=== PATIENT | male | born 1930 | race Caucasian/White ===

== ENCOUNTER 2016-09-08 15:35 | Observation (INO) | payer OTHER ==
[~2016-09-08] VITALS: Ht 165.1 cm; Wt 95.8 kg
[~2016-09-08 15:35] MED LIST: ASCO1CAP3 PO; ASPI81TA28 PO; ATEN-173 PO; DIPH-416 PO; EPLE25TA3 PO; FRS/40 PO; GLCSR/500 PO; GLIP10TA9 PO; LORA-741 PO; MULT-845 PO; PRLSR20 PO; RANI300T2 PO; ROSU5TAB PO; TAMS0.4C38 PO; VITA400C15 PO
--- NOTE | 2016-09-08 15:48 | EMERGENCY ROOM VISIT NOTE ---
History Report prepared by Jessika: Lurdes Dodd Under the Supervision of: Dr. Marva Grider M.D. First contact with patient: 15:38 Chief Complaint: CHEST PAIN Stated Complaint: CHEST PAIN History of Present Illness The patient is an 86 year old male who presents to the Emergency Room with complaints of resolved left sided chest pain beginning 90 minutes prior to arrival. He states that the pain radiates down his left arm. He does note he experienced back pain yesterday. He denies a history of a heart attack. The patient denies any shortness of breath. The patient is a diabetics and has chronic swelling to his lower extremities. The patient took 3 -81 mg aspirin and nitro prior to arrival. 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 Review of Systems See HPI for pertinent positives & negatives. A total of 10 systems reviewed and were otherwise negative. Past Medical & Surgical Medical Problems: (1) Anxiety (2) BPH (benign prostatic hyperplasia) (3) Chest pain (4) Diabetes mellitus, type II (5) Diastolic dysfunction (6) Dyslipidemia (7) GERD (gastroesophageal reflux disease) (8) HTN (hypertension) (9) Paroxysmal SVT (supraventricular tachycardia) Surgical Problems: (1) H/O umbilical hernia repair (2) History of back surgery (3) Hx of cholecystectomy Family History FH: CAD (coronary artery disease) Social History Smoking Status: Former Smoker Alcohol Use: none Drug Use: none Marital Status: Housing Status: lives with family Occupation Status: retired Current/Historical Medications Scheduled Ascorbic Acid (Vitamin C), 500 MG PO DAILY Aspirin (Aspirin EC Low Dose), 81 MG PO Q2D Atenolol (Tenormin), 25 MG PO DAILY Eplerenone (Eplerenone), 25 MG PO DAILY Furosemide (Lasix), 40 MG PO DAILY Glipizide (Glucotrol), 10 MG PO AMPM Metformin HCl (Metformin HCl ER), 500 MG PO AMPM Multiple Vitamins W/ Minerals (Centrum Silver Adult 50+), 1 TAB PO DAILY Omeprazole (Prilosec), 20 MG PO DAILY Ranitidine (Zantac), 300 MG PO HS Rosuvastatin Calcium (Crestor), 5 MG PO HS Tamsulosin Hcl (Flomax), 0.4 MG PO QPM Tocopheryl Acet,Dl-Alpha (Vitamin E), 400 INTER.UNIT PO DAILY Scheduled PRN Diphenoxylate/Atropine (Lomotil), 1 TAB PO DIRECTED PRN for Diarrhea Lorazepam (Ativan), 0.5 MG PO Q6H PRN for Anxiety Allergies Coded Allergies: Morphine (Unverified Adverse Reaction, Unknown, NAUSEA AND CONFUSION, 09/08) Physical Exam Vital Signs Date Time Temp Pulse Resp B/P Pulse Ox O2 Delivery O2 Flow Rate FiO2 09/08/16 18:00 73 22 159/66 94 09/08/16 16:04 67 09/08/16 15:53 36.5 68 21 151/66 96 Room Air 09/08/16 15:49 96 Room Air Physical Exam Vital signs reviewed. General: Well-appearing, elderly, obese, disheveled appearing. HEENT: No scleral icterus, PERRLA, neck supple. Atraumatic. Cardiovascular: Regular rate and rhythm, no extra sounds. Pulmonary: Clear to auscultation bilaterally, normal work of breathing. Abdomen: Soft, nontender, nondistended, positive bowel sounds. Musculoskeletal: Atraumatic, no peripheral edema. Neurologic: Patient awake alert and oriented x 3, full strength in all 4 extremities. Cranial nerves 2 through 12 grossly intact. Skin: Left 3-4+ pitting edema of lower extremity, right 2+ pitting edema of lower extremity. Medical Decision & Procedures ER Provider Diagnostic Interpretation: X-ray results as stated below per my interpretation and radiologist interpretation. Other radiology results as stated below per my review and radiologist interpretation: CHEST ONE VIEW PORTABLE HISTORY: Atypical chest pain COMPARISON: Chest 08/08/2016. FINDINGS: The heart remains top normal in size. A few bibasilar linear densities favor subsegmental atelectasis. Otherwise, no focal lung consolidations to suggest pneumonia. No evidence for pulmonary edema. No pleural effusions. No pneumothorax. IMPRESSION: Mild bibasilar subsegmental atelectasis. Otherwise, no acute process within the chest. Electronically signed by: Chace Storm M.D. 09/08/2016 4:20 PM Dictated Date/Time: 09/08/2016 4:18 PM ULTRASOUND VENOUS DOPPLER LWR EXT BILA CLINICAL HISTORY: Bilateral leg edema, shortness of breath, and chest pain. COMPARISON STUDY: 11/21/2014 FINDINGS: Real-time and color flow Doppler imaging were performed. Flow was seen within the femoral, popliteal and calf veins with no intraluminal thrombus demonstrated. The saphenous vein is patent. IMPRESSION: No evidence of lower extremity DVT. Electronically signed by: Oz Tierney M.D. 09/08/2016 7:14 PM Dictated Date/Time: 09/08/2016 7:13 PM Laboratory Results Test 09/08/16 17:14 Immature Granulocyte % (Auto) 0.6 % White Blood Count 9.55 K/uL (4.8-10.8) Red Blood Count 4.37 M/uL (4.7-6.1) Hemoglobin 14.8 g/dL (14.0-18.0) Hematocrit 41.4 % (42-52) Mean Corpuscular Volume 94.7 fL (80-100) Mean Corpuscular Hemoglobin 33.9 pg (25-34) Mean Corpuscular Hemoglobin Concent 35.7 g/dl (32-36) Platelet Count 222 K/uL (130-400) Mean Platelet Volume 9.5 fL (7.4-10.4) Neutrophils (%) (Auto) 70.4 % Lymphocytes (%) (Auto) 15.4 % Monocytes (%) (Auto) 12.7 % Eosinophils (%) (Auto) 0.5 % Basophils (%) (Auto) 0.4 % Neutrophils # (Auto) 6.72 K/uL (1.4-6.5) Lymphocytes # (Auto) 1.47 K/uL (1.2-3.4) Monocytes # (Auto) 1.21 K/uL (0.11-0.59) Eosinophils # (Auto) 0.05 K/uL (0-0.5) Basophils # (Auto) 0.04 K/uL (0-0.2) Immature Granulocyte # (Auto) 0.06 K/uL (0.00-0.02) Prothrombin Time 11.1 SECONDS (9.0-12.0) Prothromb Time International Ratio 1.0 (0.9-1.1) D-Dimer 400 ug/L FEU (0-500) Total Bilirubin 0.5 mg/dl (0.2-1) Direct Bilirubin 0.2 mg/dl (0-0.2) Aspartate Amino Transf (AST/SGOT) 21 U/L (15-37) Alanine Aminotransferase (ALT/SGPT) 33 U/L (12-78) Alkaline Phosphatase 81 U/L (45-117) Pro-B-Type Natriuretic Peptide 187 pg/ml (0-1800) Total Protein 6.6 gm/dl (6.4-8.2) Albumin 3.4 gm/dl (3.4-5.0) Laboratory results per my review. Medications Administered Medications (Trade) Dose Ordered Sig/Federica Route Start Time Stop Time Status Last Admin Dose Admin Magnesium Oxide (Mag-Ox Tab) 800 mg NOW STAT PO 09/08/16 17:57 09/08/16 17:59 DC 09/08/16 19:15 800 MG ECG Indication: chest pain Rate (beats per minute): 68 Rhythm: normal sinus Findings: no ectopy, other (repolarization abnormalities in anterior leads) ED Course 1541: Past medical records reviewed. The patient was evaluated in room B8. A complete history and physical examination was performed. 175: Mag-Ox Tab 800 mg PO. 1826: Troponin is negative. 1845: I reviewed the patient's case with Dr. Malik Lee. Dr. Gan will evaluate the patient for further management. Medical Decision The patient is a 86 year old male who presents to the ED with complaints of chest pain. Differentials include: Acute coronary syndrome, pulmonary embolus , aortic dissection, musculoskeletal pain, pneumonia, pleural effusion, pneumothorax This patient was evaluated and appeared to be in no significant distress. IV access was obtained and laboratory work was drawn. The patient was placed on the monitor worker and found to be in a normal sinus rhythm. Patient was given magnesium oxide 800 mg by mouth for a slightly depleted magnesium level. Chest x-ray reveals no evidence of acute process, bilateral lower extremity ultrasounds are negative for DVT. Patient's cardiac enzymes are negative. Given the patient's multiple risk factors and remote stress test with new onset weakness, he'll be evaluated by the hospitalist service for further management. He is aware of the plan and agrees. Consults Time Called: 1839 Consulting Physician: Dr. Malik Lee Returned Call: 1845 I reviewed the patient's case with Dr. Malik Lee. Dr. Gan will evaluate the patient for further management. Impression Primary Impression: Chest pain radiating to arm Scribe Attestation The scribe's documentation has been prepared under my direction and personally reviewed by me in its entirety. I confirm that the note above accurately reflects all work, treatment, procedures, and medical decision making performed by me. Departure Information Dispostion Being Evaluated By Hospitalist Referrals Shy Montes.Mathew PA-C (PCP)
--- NOTE | 2016-09-08 16:21 | DIAGNOSTIC IMAGING REPORT ---
CHEST ONE VIEW PORTABLE HISTORY: Atypical chest pain COMPARISON: Chest 08/08/2016. FINDINGS: The heart remains top normal in size. A few bibasilar linear densities favor subsegmental atelectasis. Otherwise, no focal lung consolidations to suggest pneumonia. No evidence for pulmonary edema. No pleural effusions. No pneumothorax. IMPRESSION: Mild bibasilar subsegmental atelectasis. Otherwise, no acute process within the chest. Electronically signed by: Chace Storm M.D. 09/08/2016 4:20 PM Dictated Date/Time: 09/08/2016 4:18 PM
[2016-09-08 17:23] LABS: BASO % 0.4 %; BASO ABS # 0.04 K/uL (0-0.2); COMPLETE YES; EOS % 0.5 %; HEMATOCRIT 41.4 % (42-52); IG% 0.6 %; LYMPH % 15.4 %; LYMPH ABS # 1.47 K/uL (1.2-3.4); MEAN CELL VOLUME 94.7 fL (80-100); MEAN CORPUSCULAR HEMOGLOBIN 33.9 pg (25-34); MEAN CORPUSCULAR HGB CONC 35.7 g/dl (32-36); MEAN PLATELET VOLUME 9.5 fL (7.4-10.4); MONO % 12.7 %; NEUT % 70.4 %; PLATELET COUNT 222 K/uL (130-400); RED BLOOD COUNT 4.37 M/uL (4.7-6.1); WHITE BLOOD COUNT 9.55 K/uL (4.8-10.8)
[2016-09-08 17:49] LABS: ALT/SGPT 33 U/L (12-78); AST/SGOT 21 U/L (15-37); BLOOD UREA NITROGEN 13 mg/dl (7-18); BUN/CREATININE RATIO 10.1 (10-20); CALCIUM 8.3 mg/dl (8.5-10.1); CARBON DIOXIDE 28 mmol/L (21-32); CHLORIDE 100 mmol/L (98-107); GLUCOSE 129 mg/dl (70-99); MAGNESIUM 1.7 mg/dl (1.8-2.4); POTASSIUM 3.7 mmol/L (3.5-5.1); SODIUM 139 mmol/L (136-145)
[2016-09-08 17:54] LABS: ALKALINE PHOSPHATASE 81 U/L (45-117); CKMB/CK RATIO 2.7 (0-3.0)
[2016-09-08] MEDS ORDERED: MAGNESIUM OXIDE 400 MG TAB PO STA (17:57)
[2016-09-08] MEDS ORDERED: NITROGLYCERIN 0.4 MG SL PER TAB CHARGE SL PRN (19:00)
[2016-09-08] MEDS ORDERED: POLYETHYLENE (MIRALAX) 17 GM PACK PO PRN (19:00)
[2016-09-08] MEDS ORDERED: ONDANSETRON INJ 2 MG/ML 2 ML VIAL IV PRN (19:00)
[2016-09-08] MEDS ORDERED: ALUMINUM/MAGNESIUM/SIMETH (MAALOX MAX) 30 ML UDC PO PRN (19:00)
[2016-09-08] MEDS ORDERED: ACETAMINOPHEN 325 MG TAB PO PRN (19:00)
[2016-09-08] MEDS ORDERED: ZOLPIDEM TARTRATE 5 MG TAB PO PRN (19:00)
[2016-09-08] MEDS ORDERED: MAGNESIUM HYDROXIDE SUSP 30 ML UDC PO PRN (19:00)
[2016-09-08] MEDS ORDERED: GLUCOSE 10 TABS/TUBE PO PRN (19:15)
[2016-09-08] MEDS ORDERED: DEXTROSE 50% 50 ML SYR IV PRN (19:15)
[2016-09-08] MEDS ORDERED: GLUCAGON FOR INJ 1 MG VIAL SQ PRN (19:15)
[2016-09-08] MEDS ORDERED: GLUCOSE 40% GEL 15 GM TUBE PO PRN (19:15)
--- NOTE | 2016-09-08 19:15 | DIAGNOSTIC IMAGING REPORT ---
ULTRASOUND VENOUS DOPPLER LWR EXT BILA CLINICAL HISTORY: Bilateral leg edema, shortness of breath, and chest pain. COMPARISON STUDY: 11/21/2014 FINDINGS: Real-time and color flow Doppler imaging were performed. Flow was seen within the femoral, popliteal and calf veins with no intraluminal thrombus demonstrated. The saphenous vein is patent. IMPRESSION: No evidence of lower extremity DVT. Electronically signed by: Oz Tierney M.D. 09/08/2016 7:14 PM Dictated Date/Time: 09/08/2016 7:13 PM
[2016-09-08] MEDS ORDERED: ASPEC81 PO (19:23)
[2016-09-08] MEDS ORDERED: LORAZEPAM 0.5 MG TAB PO PRN (19:30)
[2016-09-08] MEDS ORDERED: DIPHENOXYLATE/ATROPINE 2.5/0.025MG TAB PO PRN (19:30)
[2016-09-08 19:39] LABS: PROTHROMBIN TIME (PATIENT) 11.1 SECONDS (9.0-12.0)
--- NOTE | 2016-09-08 19:45 | History and Physical ---
History & Physical Date & Time of Service: Sep 08, 2016 at 19:23 Chief Complaint: Chest Pain Primary Care Physician: Shy Montes.Mathew PA-C History of Present Illness Source: patient This is an 86 y/o male with PMHx of DM 2, GERD, Diastolic dysfunction on Lasix, HTN, Dyslipidemia and other problems as outlined below who presents to the ED c/ o L sided chest pain that began this afternoon. Pt reports that he was sitting on his couch around 1400 when he developed acute onset L sided chest pain that he describes as sharp 9/10 pain that radiated down his L arm. Sxs were unchanged with exertion. Pt received 1 nitro and 3 baby ASA en route to the ED which relieved his chest pain completely. Pt has never has similar sxs before. FmHx includes mother with CAD. Pt has chronic LE edema which is unchanged from his baseline. Pt currently currently lives at home with his daughter and son-in- law. He is typically fairly active ( mowing lawn, walking, etc) with no problems. Pt denies fever/chills, diaphoresis, SOB, abd pain, N/V, bowel or bladder issues,calf pain, lightheadedness/dizziness. In the ED, vitals are stable. Trop negative. EKG no ischemic change. Pt is currently chest pain free. He will be admitted for further evaluation and treatment. Past Medical/Surgical History Medical Problems: (1) Anxiety Status: Chronic (2) BPH (benign prostatic hyperplasia) Status: Chronic (3) Diabetes mellitus, type II Status: Chronic (4) Diastolic dysfunction Status: Chronic (5) Dyslipidemia Status: Chronic (6) GERD (gastroesophageal reflux disease) Status: Chronic (7) HTN (hypertension) Status: Chronic (8) Paroxysmal SVT (supraventricular tachycardia) Status: Chronic Surgical Problems: (1) H/O umbilical hernia repair Status: Resolved (2) History of back surgery Permanent Comment: Lumbar Spine x 2. Status: Resolved (3) Hx of cholecystectomy Status: Resolved Family History FH: CAD (coronary artery disease) Social History Smoking Status: Former Smoker (4 ppd x 25 years; quit 25 years ago ) Alcohol Use: none Drug Use: none Marital Status: Housing status: lives with family (daughter and son-in-law) Occupational Status: retired Immunizations History of Influenza Vaccine: No History of Tetanus Vaccine?: Yes History of Pneumococcal: Yes Pneumococcal Date: May 10, 2009 History of Hepatitis B Vaccine: No Multi-Drug Resistant Organisms History of MDRO: No Allergies Coded Allergies: Morphine (Unverified Adverse Reaction, Unknown, NAUSEA AND CONFUSION, 09/08) Home Medications Scheduled Ascorbic Acid (Vitamin C), 500 MG PO DAILY Aspirin (Aspirin EC Low Dose), 81 MG PO Q2D Atenolol (Tenormin), 25 MG PO DAILY Eplerenone (Eplerenone), 25 MG PO DAILY Furosemide (Lasix), 40 MG PO DAILY Glipizide (Glucotrol), 10 MG PO AMPM Isosorbide Mononitrate (Isosorbide Mononitrate ER), 30 MG PO QAM Metformin HCl (Metformin HCl ER), 500 MG PO AMPM Multiple Vitamins W/ Minerals (Centrum Silver Adult 50+), 1 TAB PO DAILY Omeprazole (Prilosec), 20 MG PO DAILY Ranitidine (Zantac), 300 MG PO HS Rosuvastatin Calcium (Crestor), 5 MG PO HS Tamsulosin Hcl (Flomax), 0.4 MG PO QPM Tocopheryl Acet,Dl-Alpha (Vitamin E), 400 INTER.UNIT PO DAILY Scheduled PRN Diphenoxylate/Atropine (Lomotil), 1 TAB PO DIRECTED PRN for Diarrhea Lorazepam (Ativan), 0.5 MG PO Q6H PRN for Anxiety Review of Systems Constitutional: No chills, No fatigue, No fever, No sweats, No weakness Eyes: No worsening of vision ENT: No hearing loss Respiratory: No cough, No shortness of breath Cardiovascular: + chest pain, No claudication, No edema, No palpitations Abdomen: No constipation, No diarrhea, No nausea, No pain, No vomiting Musculoskeletal: + swelling (chronic), No calf pain Genitourinary - Male: No dysuria Neurologic: No weakness Psychiatric: No depression symptoms Endocrine: No fatigue Hematologic / Lymphatic: No abnormal bleeding/bruising Integumentary: No new/changing skin lesions Physical Exam Vital Signs Date Time Temp Pulse Resp B/P Pulse Ox O2 Delivery O2 Flow Rate FiO2 09/08/16 18:00 73 22 159/66 94 09/08/16 16:04 67 09/08/16 15:53 36.5 68 21 151/66 96 Room Air 09/08/16 15:49 96 Room Air General Appearance: WD/WN, no apparent distress, + pertinent finding (Pt is sitting up comfortably in bed ) Head: normocephalic, atraumatic Eyes: normal inspection ENT: hearing grossly normal Neck: supple Respiratory/Chest: chest non-tender, lungs clear, normal breath sounds, no respiratory distress Cardiovascular: regular rate, rhythm, no murmur Abdomen/GI: normal bowel sounds, non tender, soft Back: normal inspection Extremities/Musculoskelatal: no calf tenderness, + pedal edema (4+ pitting edema bilat; L>R), + swelling, + pertinent finding Neurologic/Psych: alert, normal mood/affect, oriented x 3 Skin: normal color, warm/dry Diagnostics Laboratory Results Results Past 24 Hours Test 09/08/16 17:14 09/08/16 18:57 09/08/16 19:00 Range/Units White Blood Count 9.55 4.8-10.8 K/uL Red Blood Count 4.37 4.7-6.1 M/uL Hemoglobin 14.8 14.0-18.0 g/dL Hematocrit 41.4 42-52 % Mean Corpuscular Volume 94.7 80-100 fL Mean Corpuscular Hemoglobin 33.9 25-34 pg Mean Corpuscular Hemoglobin Concent 35.7 32-36 g/dl Platelet Count 222 130-400 K/uL Mean Platelet Volume 9.5 7.4-10.4 fL Neutrophils (%) (Auto) 70.4 % Lymphocytes (%) (Auto) 15.4 % Monocytes (%) (Auto) 12.7 % Eosinophils (%) (Auto) 0.5 % Basophils (%) (Auto) 0.4 % Neutrophils # (Auto) 6.72 1.4-6.5 K/uL Lymphocytes # (Auto) 1.47 1.2-3.4 K/uL Monocytes # (Auto) 1.21 0.11-0.59 K/uL Eosinophils # (Auto) 0.05 0-0.5 K/uL Basophils # (Auto) 0.04 0-0.2 K/uL RDW Standard Deviation 43.7 36.4-46.3 fL RDW Coefficient of Variation 12.7 11.5-14.5 % Immature Granulocyte % (Auto) 0.6 % Immature Granulocyte # (Auto) 0.06 0.00-0.02 K/uL Sodium Level 139 136-145 mmol/L Potassium Level 3.7 3.5-5.1 mmol/L Chloride Level 100 98-107 mmol/L Carbon Dioxide Level 28 21-32 mmol/L Anion Gap 11.0 3-11 mmol/L Blood Urea Nitrogen 13 7-18 mg/dl Creatinine 1.30 0.60-1.40 mg/dl Est Creatinine Clear Calc Drug Dose 43.0 ml/min Estimated GFR () 56.5 Estimated GFR (Non- 48.7 BUN/Creatinine Ratio 10.1 10-20 Random Glucose 129 70-99 mg/dl Calcium Level 8.3 8.5-10.1 mg/dl Magnesium Level 1.7 1.8-2.4 mg/dl Total Bilirubin 0.5 0.2-1 mg/dl Direct Bilirubin 0.2 0-0.2 mg/dl Aspartate Amino Transf (AST/SGOT) 21 15-37 U/L Alanine Aminotransferase (ALT/SGPT) 33 12-78 U/L Alkaline Phosphatase 81 45-117 U/L Total Creatine Kinase 48 39-308 U/L Creatine Kinase MB 1.3 0.5-3.6 ng/ml Creatine Kinase MB Ratio 2.7 0-3.0 Troponin I < 0.015 0-0.045 ng/ml Pro-B-Type Natriuretic Peptide 187 0-1800 pg/ml Total Protein 6.6 6.4-8.2 gm/dl Albumin 3.4 3.4-5.0 gm/dl Diagnostic Radiology CXR IMPRESSION: Mild bibasilar subsegmental atelectasis. Otherwise, no acute process within the chest. BILAT LE US IMPRESSION: No evidence of lower extremity DVT. EKG EKG: NSR at 68 bpm with RBBB; no change when compared to EKG from 07/29/16 Impression Assessment and Plan ATYPICAL CHEST PAIN R/O ACS pt presents with L sided chest pain radiating down L arm relieved with nitro -observation status to telemetry -RFs include +FmHx, DM 2, HTN, Dyslipidemia, age and sex -EKG negative for ischemic change;repeat EKG PRN chest pain and in AM -Initial troponin is negative; continue to monitor with serial cardiac enzymes q6h -d-dimer negative -obtain echo to r/o cardiac wall motion abnormalities -cont ASA, BB and statin -consult cardiology, Dr. Shetty-pending input -pt is currently chest pain free -continue to monitor CHRONIC BILAT LE SWELLING; L>R -per pt, swelling is unchanged from baseline -bilat LE US negative for DVT -cont Lasix and eplerenone -monitor DIASTOLIC CHF -significant LE edema; CXR clear -echo 11/2014 EF 70% with grade 1 diastolic dysfunction and mild aortic regurg -cont Lasix, eplerenone and BB -monitor with I&Os and daily weights DM 2 -last A1C from 2014 was 8.3; repeat in AM -hold metformin and glipizide -start ISS -monitor BSG AC HS BPH -cont Flomax GERD -cont Prilosec and Zantac HTN -cont atenolol DYSLIPIDEMIA -cont statin DVT PROPHYLAXIS -subq heparin CODE STATUS -FULL CODE per discussion with patient upon admission DISPO Observation status until further workup is complete. Pt seen in collaboration with Dr. Gan. Please see her addendum for further details. Thanks! ATTENDING ADDENDUM : pt seen and examined , in agreement with above H&P 86 yo Male presented with acute onset of left sided sharp chest pain with radiation to left arm no SOB symptom completely resolved NO ischemic change in EKG initial cardiac marker negative P/E: gen : no sign of distress HEENT: sclera nonicteric , PERRLA/EOMI HT; regular S1/S2 lungs: CTA abdomen; soft,non tender Ext ; no rash , deformity neuro: no foal deficit A/P : Chest pain ; Atypical for ACS observe in Tele symptom has resolved follow serial cardiac makers Cardiology eval requested full code VTE Prophylaxis VTE Risk Assessment Done? Y/N: Yes Risk Level: Moderate
[2016-09-08 20:19] VITALS: BP_SYST 166; BP_SYST 190; BP_DIAS 65; BP_DIAS 72; PULSE 78; TEMP 36.6; O2SAT 95; Ht 165.1 cm; Wt 95.8 kg
[2016-09-08] MEDS ORDERED: ROSUVASTATIN CALCIUM 10 MG TAB PO SCH (21:00)
[2016-09-08] MEDS ORDERED: RANITIDINE HCL 150 MG TAB PO SCH (21:00)
[2016-09-08] MEDS ORDERED: TAMSULOSIN HCL 0.4 MG CAP PO SCH (21:00)
[2016-09-08] MEDS ORDERED: PHARMACY GLYCEMIC MGMT CONSULT PRN (21:19)
[2016-09-08] MEDS: INSULIN ASPART 100 UNITS/ML 3 ML PEN SC SCH (22:00)
[2016-09-08] MEDS: HEPARIN SOD 5000 UNIT/0.5 ML CARP SQ SCH (22:45)
[2016-09-09 00:03] VITALS: BP 155/76; PULSE 75; TEMP 36.8; O2SAT 94
[2016-09-09 01:27] LABS: CKMB/CK RATIO 2.6 (0-3.0)
[2016-09-09 02:45] VITALS: BP 138/72; PULSE 62; TEMP 36.4; O2SAT 97
[2016-09-09] MEDS: HEPARIN SOD 5000 UNIT/0.5 ML CARP SQ SCH ×2 (06:03→14:41)
[2016-09-09 06:20] LABS: HEMATOCRIT 40.5 % (42-52); MEAN CELL VOLUME 95.7 fL (80-100); MEAN CORPUSCULAR HEMOGLOBIN 33.1 pg (25-34); MEAN CORPUSCULAR HGB CONC 34.6 g/dl (32-36); MEAN PLATELET VOLUME 9.4 fL (7.4-10.4); PLATELET COUNT 193 K/uL (130-400); RED BLOOD COUNT 4.23 M/uL (4.7-6.1); WHITE BLOOD COUNT 7.95 K/uL (4.8-10.8)
[2016-09-09 06:54] LABS: BUN/CREATININE RATIO 11.9 (10-20); CALCIUM 8.6 mg/dl (8.5-10.1); CHOLESTEROL/HDL RATIO 4.1; CREATININE 1.2 mg/dl (0.60-1.40); POTASSIUM 4.3 mmol/L (3.5-5.1)
[2016-09-09] MEDS: INSULIN ASPART 100 UNITS/ML 3 ML PEN SC SCH ×2 (07:00→14:47)
[2016-09-09 07:15] LABS: ESTIMATED AVERAGE GLUCOSE 143 mg/dl; HA1C FLAG Normal (Normal)
[2016-09-09 08:00] VITALS: BP 183/92; PULSE 66; TEMP 36.6; O2SAT 95
[2016-09-09] MEDS ORDERED: FUROSEMIDE 40 MG TAB PO SCH (09:00)
[2016-09-09] MEDS ORDERED: CEROVITE ADV FORMULA TAB PO SCH (09:00)
[2016-09-09] MEDS ORDERED: PANTOprazole SOD 40 MG TAB PO SCH (09:00)
[2016-09-09] MEDS ORDERED: ASPIRIN 81 MG ECTAB PO SCH ×2 (09:00)
[2016-09-09] MEDS ORDERED: TOCOPHERYL, DL-ALPHA 400 INTER.UNIT CAP PO SCH (09:00)
[2016-09-09] MEDS ORDERED: ASCORBIC ACID 500 MG TAB PO SCH (09:00)
--- NOTE | 2016-09-09 09:07 | Pharmacy Progress Note ---
Glycemic Control Intl Consult Date of Service Sep 09, 2016. Scope Glycemic Pharmacist consulted by Dr Gan on 09/08/16 for glycemic control and to write orders per [facility] inpatient glycemic control protocol Objective Weight (Kilograms): 95.800 Accuchecks BSG (last 24hrs): Test 09/08/16 17:14 09/08/16 20:28 09/08/16 22:34 09/09/16 06:02 Random Glucose 129 mg/dl (70-99) 134 mg/dl (70-99) Bedside Glucose 122 mg/dl (70-99) 130 mg/dl (70-99) Test 09/09/16 06:51 Bedside Glucose 131 mg/dl (70-99) Laboratory Data (last 24hrs) Test 09/08/16 17:14 09/09/16 06:02 Anion Gap 11.0 mmol/L 8.0 mmol/L BUN/Creatinine Ratio 10.1 11.9 Blood Urea Nitrogen 13 mg/dl 14 mg/dl Creatinine 1.30 mg/dl 1.20 mg/dl Potassium Level 3.7 mmol/L 4.3 mmol/L Sodium Level 139 mmol/L 140 mmol/L White Blood Count 9.55 K/uL 7.95 K/uL Red Blood Count 4.37 M/uL Hemoglobin 14.8 g/dL Hematocrit 41.4 % Mean Corpuscular Volume 94.7 fL Mean Corpuscular Hemoglobin 33.9 pg Mean Corpuscular Hemoglobin Concent 35.7 g/dl Platelet Count 222 K/uL Mean Platelet Volume 9.5 fL Neutrophils (%) (Auto) 70.4 % Lymphocytes (%) (Auto) 15.4 % Monocytes (%) (Auto) 12.7 % Eosinophils (%) (Auto) 0.5 % Basophils (%) (Auto) 0.4 % Neutrophils # (Auto) 6.72 K/uL Lymphocytes # (Auto) 1.47 K/uL Monocytes # (Auto) 1.21 K/uL Eosinophils # (Auto) 0.05 K/uL Basophils # (Auto) 0.04 K/uL Hemoglobin A1c 6.6 % HbA1c Test 09/09/16 06:02 Hemoglobin A1c 6.6 % (4.5-5.6) H Recent Pertinent Medications Outpatient Anti-diabetic Regimen: * Glipizide 10 mg PO BIDM * Metformin 500 mg PO BIDM The patient is currently receiving: * Correctional Insulin: Novolog Correction per scale ACHS Goal Range: Low 140 mg/dL - High 180 mg/dL Correction Factor: 30 mg/dL/unit * Prandial insulin: Per carb ratio of 1 unit per 10 grams CHO consumed Risk Factors for Insulin Resistance: * Diet Assessment & Plan ASSESSMENT: * 86 yo T2D M admitted with chest pain, initiated on Novolog sliding scale overnight for the management of BSGs * A1c from this admission 6.6%- indicative of good glycemic control * Plan will be to hold outpatient oral hypoglycemics- patient did not eat breakfast well and with poor oral intake these drugs are not appropriate * Continue weight-based Novolog and reassess how patient does when eating ( patient may not need carb coverage) * ADA & AACE recommend a goal blood sugar range 140-180 mg/dl for the majority of critically ill & non-critically ill patients. However, more stringent targets may be selected in individual cases. PLAN FOR INPATIENT GLYCEMIC CONTROL: * Holding outpatient oral diabetes medications * Correctional Insulin with NOVOLOG per scale ACHS or Q6hrs while NPO * Goal Range: Low 140 mg/dL - High 180 mg/dL * Correction Factor: 30 mg/dL/unit * Nutritional / Prandial insulin per carb ratio of 1 unit per 15 grams CHO consumed * A1c current- added to D/C instructions * Please note that the plan above was derived based on current level of insulin resistance and hospital stress. These recommendations are appropriate for inpatient admission only. Plan of care upon discharge will need to be reassessed to avoid potential outpatient hypo/hyperglycemia. Thank you.
--- NOTE | 2016-09-09 09:35 | Progress Note ---
Internal Med Progress Note Date of Service: Sep 09, 2016. Provider Documentation: SUBJECTIVE: Patient is seen and examined at bedside. Currently denies any chest pain, SOB, dizziness, cough. Feels well. OBJECTIVE: Vital Signs-as noted below Physical Exam: General Appearance:Moderately built and nourished, no apparent distress, obese Head: normocephalic, Atraumatic Eyes: normal inspection, EOMI, PERRLA, Anicteric Neck: supple, no JVD, Trachea midline Respiratory/Chest: Normal breath sounds, CTA, No accessory muscle use Cardiovascular: S1, S2, No murmur Abdomen/GI:Soft, Non tender, Bowel sounds present, protuberant Extremities/Musculoskelatal:Edema 2+ Neurologic/Psych:AAOX3, grossly no focal neurological deficits Skin: normal color, warm Lab data as noted below. ASSESSMENT & PLAN: ATYPICAL CHEST PAIN R/O ACS Presented with Left sided chest pain radiating down Left arm which relieved with nitro, aspirin Risk Factors: positive family history, DM II, HTN, Dyslipidemia EKG: negative for ischemic changes Initial troponin: negative Repeat cardiac enzymes pending. D-dimer: negative, CXR: Negative ECHO: pending Continue ASA, BB, statin Cardiology consulted- await for input Chronic Bilateral LE swelling: Swelling unchanged from baseline per patient B/L LE duplex negative for DVT Continue Lasix and eplerenone DIASTOLIC CHF Significant LE edema; CXR clear Currently no signs of decompensation Last Echo 11/2014 EF 70% with grade 1 diastolic dysfunction Continue Lasix, eplerenone and BB Monitor I&O, daily weights DM II A1C:6.6 hold metformin and glipizide Continue ISS BPH continue flomax GERD continue Prilosec and Zantac HTN Continue atenolol, diuretics Will adjust meds if elevated persistently Currently asymptomatic DYSLIPIDEMIA continue statin DVT PROPHYLAXIS Heparin SQ CODE STATUS Full code DISPO Observation status: Await for cardiology input, ECHO, cardiac enzymes Vital Signs: Date Time Temp Pulse Resp B/P Pulse Ox O2 Delivery O2 Flow Rate FiO2 09/09/16 08:00 36.6 66 18 183/92 95 09/09/16 08:00 Room Air 09/09/16 04:00 Room Air 09/09/16 02:45 36.4 62 19 138/72 97 Room Air 09/09/16 00:03 36.8 75 18 155/76 94 Room Air 09/08/16 23:59 Room Air 09/08/16 20:19 36.6 78 20 190/65 95 Room Air 166/72 09/08/16 20:01 74 158/64 94 Room Air 09/08/16 18:00 73 22 159/66 94 09/08/16 16:04 67 09/08/16 15:53 36.5 68 21 151/66 96 Room Air 09/08/16 15:49 96 Room Air Lab Results: Results Past 24 Hours Test 09/08/16 17:14 09/08/16 20:28 09/08/16 22:34 09/09/16 00:57 Range/Units White Blood Count 9.55 4.8-10.8 K/uL Red Blood Count 4.37 4.7-6.1 M/uL Hemoglobin 14.8 14.0-18.0 g/dL Hematocrit 41.4 42-52 % Mean Corpuscular Volume 94.7 80-100 fL Mean Corpuscular Hemoglobin 33.9 25-34 pg Mean Corpuscular Hemoglobin Concent 35.7 32-36 g/dl Platelet Count 222 130-400 K/uL Mean Platelet Volume 9.5 7.4-10.4 fL Neutrophils (%) (Auto) 70.4 % Lymphocytes (%) (Auto) 15.4 % Monocytes (%) (Auto) 12.7 % Eosinophils (%) (Auto) 0.5 % Basophils (%) (Auto) 0.4 % Neutrophils # (Auto) 6.72 1.4-6.5 K/uL Lymphocytes # (Auto) 1.47 1.2-3.4 K/uL Monocytes # (Auto) 1.21 0.11-0.59 K/uL Eosinophils # (Auto) 0.05 0-0.5 K/uL Basophils # (Auto) 0.04 0-0.2 K/uL RDW Standard Deviation 43.7 36.4-46.3 fL RDW Coefficient of Variation 12.7 11.5-14.5 % Immature Granulocyte % (Auto) 0.6 % Immature Granulocyte # (Auto) 0.06 0.00-0.02 K/uL Prothrombin Time 11.1 9.0-12.0 SECONDS Prothromb Time International Ratio 1.0 0.9-1.1 D-Dimer 400 0-500 ug/L FEU Sodium Level 139 136-145 mmol/L Potassium Level 3.7 3.5-5.1 mmol/L Chloride Level 100 98-107 mmol/L Carbon Dioxide Level 28 21-32 mmol/L Anion Gap 11.0 3-11 mmol/L Blood Urea Nitrogen 13 7-18 mg/dl Creatinine 1.30 0.60-1.40 mg/dl Est Creatinine Clear Calc Drug Dose 43.0 ml/min Estimated GFR () 56.5 Estimated GFR (Non- 48.7 BUN/Creatinine Ratio 10.1 10-20 Random Glucose 129 70-99 mg/dl Calcium Level 8.3 8.5-10.1 mg/dl Magnesium Level 1.7 1.8-2.4 mg/dl Total Bilirubin 0.5 0.2-1 mg/dl Direct Bilirubin 0.2 0-0.2 mg/dl Aspartate Amino Transf (AST/SGOT) 21 15-37 U/L Alanine Aminotransferase (ALT/SGPT) 33 12-78 U/L Alkaline Phosphatase 81 45-117 U/L Total Creatine Kinase 48 43 39-308 U/L Creatine Kinase MB 1.3 1.1 0.5-3.6 ng/ml Creatine Kinase MB Ratio 2.7 2.6 0-3.0 Troponin I < 0.015 < 0.015 0-0.045 ng/ml Pro-B-Type Natriuretic Peptide 187 0-1800 pg/ml Total Protein 6.6 6.4-8.2 gm/dl Albumin 3.4 3.4-5.0 gm/dl Bedside Glucose 122 130 70-99 mg/dl Test 09/09/16 06:02 09/09/16 06:51 09/09/16 09:00 Range/Units White Blood Count 7.95 4.8-10.8 K/uL Red Blood Count 4.23 4.7-6.1 M/uL Hemoglobin 14.0 14.0-18.0 g/dL Hematocrit 40.5 42-52 % Mean Corpuscular Volume 95.7 80-100 fL Mean Corpuscular Hemoglobin 33.1 25-34 pg Mean Corpuscular Hemoglobin Concent 34.6 32-36 g/dl RDW Standard Deviation 44.1 36.4-46.3 fL RDW Coefficient of Variation 12.7 11.5-14.5 % Platelet Count 193 130-400 K/uL Mean Platelet Volume 9.4 7.4-10.4 fL Sodium Level 140 136-145 mmol/L Potassium Level 4.3 3.5-5.1 mmol/L Chloride Level 101 98-107 mmol/L Carbon Dioxide Level 31 21-32 mmol/L Anion Gap 8.0 3-11 mmol/L Blood Urea Nitrogen 14 7-18 mg/dl Creatinine 1.20 0.60-1.40 mg/dl Est Creatinine Clear Calc Drug Dose 45.3 ml/min Estimated GFR () 62.2 Estimated GFR (Non- 53.7 BUN/Creatinine Ratio 11.9 10-20 Random Glucose 134 70-99 mg/dl Estimated Average Glucose 143 mg/dl Hemoglobin A1c 6.6 4.5-5.6 % Calcium Level 8.6 8.5-10.1 mg/dl Magnesium Level 2.0 1.8-2.4 mg/dl Triglycerides Level 248 0-150 mg/dl Cholesterol Level 110 0-200 mg/dl HDL Cholesterol 27 mg/dl LDL Cholesterol, Calculated 33 mg/dl VLDL Cholesterol, Calculated 50 mg/dl Cholesterol/HDL Ratio 4.1 Bedside Glucose 131 70-99 mg/dl Total Creatine Kinase 52 39-308 U/L Creatine Kinase MB 1.1 0.5-3.6 ng/ml Creatine Kinase MB Ratio 2.1 0-3.0 Troponin I < 0.015 0-0.045 ng/ml
[2016-09-09 10:00] LABS: CKMB/CK RATIO 2.1 (0-3.0)
--- NOTE | 2016-09-09 11:05 | Cardiology Consultation ---
Cardiology Consultation Cardiology Consultation: Date: 09/09/16 HPI: Patient is an 86 year old male who follows with Sakshi Baez PA-C for cardiac care, and carries a past medical history for non cardiac chest pain, normal remote cath in approx 1999, negative DSE in 2012, normal LVEF per echo in 2014, history of hypertension, chronic LE edema, diastolic HF, remote history of PSVT, COPD, GERD. He states he has been feeling well and in usual state of health, until yesterday afternoon he was watching TV and experienced sudden onset left sided sharp chest pain that radiated to left shoulder. Symptoms were continuously for 20 minutes and EMS was summoned. En route to ER he was treated with SL nitro and ASA and symptoms resolved by the time he got to ER. He denies associated shortness of breath, diaphoresis, palpitations, nausea, or dizziness. He denies recent episodes of chest pain with exertional activities. He is independent with ADLs and remains active daily without symptoms. He notes chronic LE edema, unchanged without worsening SOB, orthopnea, PND or significant weight gain. He takes furosemide/Inspra daily. EKG demonstrated NSR with RBBB, chronic and unchanged without ischemic changes. Cardiac enzymes unremarkalb.e At time of consult, patient feeling well. no recurrent symptoms since admission. He is requesting discharge today if possible. BP remains borderline elevated. No chest pain, SOB, orthopnea, PND. Chronic LE edema noted. No Review of Systems: See HPI for pertinent positives. All other 10 point review of systems is negative. Problem List: 1.Noncardiac chest pain with remote catheterization without obstructive disease 2.Diastolic heart failure 3.Chronic edema 4.Hypertension 5.Hyperlipidemia 6.Remote history of PSVT 7.Chronic obstructive lung disease. 8.BPH 9.Esophageal reflux 10.Chart history of gastrointestinal hemorrhage Past Surgical History Remove gallbladder Lumbar spinal surgery x2 Umbil hernia repair (reducible) age 3+yr Egd, flexible, w/biopsy - chronic inflammation/gastritis Family History: noncontributory Social History: Formed smoker, smoking up to 4 packs per day times 60 years. [employer]. Also worked at [employer]. . Lives with daughters. No alcohol. No illegal drug use. Review of patient's allergies indicates: No Known Allergies Current Outpatient Prescriptions Reported Home Medications Medications Dose Route/Sig Max Daily Dose Days Date Category Dose Instructions Aspirin EC Low Dose (Aspirin) 81 Mg Ectab 81 Mg PO Q2D 09/08/16 Reported Metformin HCl ER (Metformin HCl) 500 Mg Tabcr 500 Mg PO AMPM 04/21/16 Reported Eplerenone 25 Mg Tab 25 Mg PO DAILY 08/30/15 Reported Glucotrol (Glipizide) 10 Mg Tab 10 Mg PO AMPM 08/30/15 Reported Lomotil (Diphenoxylate HCl/Atropine) Tab 1 Tab PO DIRECTED PRN 08/30/15 Reported Ativan (Lorazepam) 0.5 Mg Tab 0.5 Mg PO Q6H PRN 08/30/15 Reported Lasix (Furosemide) 40 Mg Tab 40 Mg PO DAILY 08/30/15 Reported Centrum Silver Adult 50+ (Multiple Vitamins W/ Minerals) 1 Tab Tab 1 Tab PO DAILY 11/21/14 Reported Flomax (Tamsulosin Hcl) 0.4 Mg Cap 0.4 Mg PO QPM 11/21/14 Reported TAKE AFTER EVENING MEAL Vitamin C (Ascorbic Acid) 500 Mg Cap 500 Mg PO DAILY 08/07/13 Reported Crestor (Rosuvastatin Calcium) 5 Mg Tab 5 Mg PO HS 08/07/13 Reported Prilosec (Omeprazole) 20 Mg Capcr 20 Mg PO DAILY 11/08/10 Reported Zantac (Ranitidine HCl) 300 Mg Tab 300 Mg PO HS 12/29/09 Reported Vitamin E (el-Opitg-Iogvaezcqy Acetate) 400 Inter.unit Cap 400 Inter.unit PO DAILY 12/29/09 Reported Tenormin (Atenolol) 25 Mg Tab 25 Mg PO DAILY 01/28/09 Reported OBJECTIVE/PHYSICAL EXAMINATION: Last 8 Hrs Date Time Temp Pulse Resp B/P Pulse Ox O2 Delivery O2 Flow Rate FiO2 09/09/16 08:00 36.6 66 18 183/92 95 09/09/16 08:00 Room Air 09/09/16 04:00 Room Air 09/09/16 02:45 36.4 62 19 138/72 97 Room Air General: A&Ox3. NAD. HEENT: Normocephalic. Atraumatic. PER. Conjunctiva pink, sclera clear. No carotid bruits. No overt JVD. Heart: RRR, 70 bpm. No murmur. No rub. No gallop. PMI is nondisplaced. Lungs: Improved aeration to the bases. No dullness to percussion. Abdomen: +BS. Distended. Soft. Nontender. No masses or organomegaly. Extremities: 1-2+ right lower extremity edema. 2+ left lower extremity pitting edema. Marked lymphedematous changes on the left. No clubbing. No cyanosis. Limited neurological examination is without focal deficits. Pulses: Radial=2/4. Posterior tibial pulses were not appreciated. Data Reviewed: Labs: Last 24 Hours Test 09/08/16 17:14 09/08/16 20:28 09/08/16 22:34 09/09/16 00:57 White Blood Count 9.55 K/uL Red Blood Count 4.37 M/uL Hemoglobin 14.8 g/dL Hematocrit 41.4 % Mean Corpuscular Volume 94.7 fL Mean Corpuscular Hemoglobin 33.9 pg Mean Corpuscular Hemoglobin Concent 35.7 g/dl Platelet Count 222 K/uL Mean Platelet Volume 9.5 fL Neutrophils (%) (Auto) 70.4 % Lymphocytes (%) (Auto) 15.4 % Monocytes (%) (Auto) 12.7 % Eosinophils (%) (Auto) 0.5 % Basophils (%) (Auto) 0.4 % Neutrophils # (Auto) 6.72 K/uL Lymphocytes # (Auto) 1.47 K/uL Monocytes # (Auto) 1.21 K/uL Eosinophils # (Auto) 0.05 K/uL Basophils # (Auto) 0.04 K/uL RDW Standard Deviation 43.7 fL RDW Coefficient of Variation 12.7 % Immature Granulocyte % (Auto) 0.6 % Immature Granulocyte # (Auto) 0.06 K/uL Prothrombin Time 11.1 SECONDS Prothromb Time International Ratio 1.0 D-Dimer 400 ug/L FEU Sodium Level 139 mmol/L Potassium Level 3.7 mmol/L Chloride Level 100 mmol/L Carbon Dioxide Level 28 mmol/L Anion Gap 11.0 mmol/L Blood Urea Nitrogen 13 mg/dl Creatinine 1.30 mg/dl Est Creatinine Clear Calc Drug Dose 43.0 ml/min Estimated GFR () 56.5 Estimated GFR (Non- 48.7 BUN/Creatinine Ratio 10.1 Random Glucose 129 mg/dl Calcium Level 8.3 mg/dl Magnesium Level 1.7 mg/dl Total Bilirubin 0.5 mg/dl Direct Bilirubin 0.2 mg/dl Aspartate Amino Transf (AST/SGOT) 21 U/L Alanine Aminotransferase (ALT/SGPT) 33 U/L Alkaline Phosphatase 81 U/L Total Creatine Kinase 48 U/L 43 U/L Creatine Kinase MB 1.3 ng/ml 1.1 ng/ml Creatine Kinase MB Ratio 2.7 2.6 Troponin I < 0.015 ng/ml < 0.015 ng/ml Pro-B-Type Natriuretic Peptide 187 pg/ml Total Protein 6.6 gm/dl Albumin 3.4 gm/dl Bedside Glucose 122 mg/dl 130 mg/dl Test 09/09/16 06:02 09/09/16 06:51 White Blood Count 7.95 K/uL Red Blood Count 4.23 M/uL Hemoglobin 14.0 g/dL Hematocrit 40.5 % Mean Corpuscular Volume 95.7 fL Mean Corpuscular Hemoglobin 33.1 pg Mean Corpuscular Hemoglobin Concent 34.6 g/dl RDW Standard Deviation 44.1 fL RDW Coefficient of Variation 12.7 % Platelet Count 193 K/uL Mean Platelet Volume 9.4 fL Sodium Level 140 mmol/L Potassium Level 4.3 mmol/L Chloride Level 101 mmol/L Carbon Dioxide Level 31 mmol/L Anion Gap 8.0 mmol/L Blood Urea Nitrogen 14 mg/dl Creatinine 1.20 mg/dl Est Creatinine Clear Calc Drug Dose 45.3 ml/min Estimated GFR () 62.2 Estimated GFR (Non- 53.7 BUN/Creatinine Ratio 11.9 Random Glucose 134 mg/dl Estimated Average Glucose 143 mg/dl Hemoglobin A1c 6.6 % Calcium Level 8.6 mg/dl Magnesium Level 2.0 mg/dl Triglycerides Level 248 mg/dl Cholesterol Level 110 mg/dl HDL Cholesterol 27 mg/dl LDL Cholesterol, Calculated 33 mg/dl VLDL Cholesterol, Calculated 50 mg/dl Cholesterol/HDL Ratio 4.1 Bedside Glucose 131 mg/dl Chest Xray on admission: IMPRESSION: Mild bibasilar subsegmental atelectasis. Otherwise, no acute process within the chest. Venous duplex on admission: IMPRESSION: No evidence of lower extremity DVT EKG on admission: Normal sinus rhythm Right bundle branch block Abnormal ECG When compared with ECG of 08-AUG-2016 03:42, No significant change was found Repeat EKG on 09/09 AM: Normal sinus rhythm Right bundle branch block Abnormal ECG When compared with ECG of 08-SEP-2016 15:45, No significant change was found Prior Data reviewed: November 2014 resting echocardiography, interpreted by Dr. Fenton showed normal LV chamber size with mild concentric LVH. LV systolic function was described as hyperdynamic, EF greater than 70%. No segmental left ventricular wall motion abnormalities were observed. Grade 1 diastolic dysfunction observed. There was mild aortic valve sclerosis without significant stenosis and mild aortic regurgitation. August 08, 2013 dobutamine stress testing was negative for pharmacologically induced myocardial ischemia at greater than 90% age predicted maximum heart rate. ASSESSMENT: 1. Atypical chest pain -no acute EKG changes -negative cardiac enzymes x2 -echocardiogram pending -has long history of presumed non cardiac chest pain, normal cath in approx 1999, with repeatedly normal stress tests, last in 2012. Echo with preserved EF in 2014. 2. Hypertension - elevated on admission -Continue atenolol, furosemide. Resume Inspra on discharge (not on formulary) -Avoid CCB given chronic LE edema -Not on IVAN/ARB? May benefit. 3. Chronic LE edema, multifactorial -stable Case discussed with Dr. Shetty. If echo remains unchanged and BP improves post AM meds, likely stable for discharge later today. (Mandy Amaral, PA-C) Patient seen and examined. Agree with assessment as above Admitted with sharp left chest /shoulder pain,resolved with one NTG and aspirin. No reoccurrence today , normal LV function and cardiac enzymes, no EKG changes. Would empirically treat HTN and above symptoms add Imdur 30 mg per day and ambulate. If stable may be discharged for out patient follow up. Santos Shetty MD (Santos Shetty M.D.)
[2016-09-09 12:38] VITALS: BP 153/84; PULSE 60; TEMP 36.3; O2SAT 96
--- NOTE | 2016-09-09 14:06 | ECHOCARDIOGRAM REPORT ---
*NOTICE TO RECEIVING LIBERTARIAN AGENCY This information is strictly Confidential and protected under [place] law. [place] law prohibits you from making any further disclosure of this information unless further disclosure is expressly permitted by the written consent of the person to whom it pertains or is authorized by law. A general authorization for the release of medical or other information is not sufficient for this purpose. Hospital accepts no responsibility if the information is made available to any other person, INCLUDING THE PATIENT. Interpretation Summary * Name: KEELY TATE Study Date: 09/09/2016 11:38 AM BP: 138/72 mmHg * [facility] HR: 62 * : 1930 (M/d/yyyy) Gender: Male Height: 65 in * Age: 86 yrs Ethnicity: [place] Weight: 222 lb * Ordering Physician: Bhavani Gan * Referring Physician: Self, Referred * Performed By: Sakshi Reed RCS * * Reason For Study: Chest Pain * BSA: 2.1 m2 * -- Conclusions -- * The left ventricle is normal in size. * There is mild concentric left ventricular hypertrophy. * The basal septum is thickened and angulated consistent with sigmoid septum. * The left ventricular wall motion is normal. * Left ventricular systolic function is normal. * Ejection Fraction = 65-70%. * Aortic valve sclerosis mild, without significant aortic valvular stenosis. * Trace aortic regurgitation. * There is trace mitral regurgitation. Procedure Details * A complete two-dimensional transthoracic echocardiogram was performed (2D, M-mode, Doppler and color flow Doppler). Left Ventricle * The left ventricle is normal in size. * There is mild concentric left ventricular hypertrophy. * The basal septum is thickened and angulated consistent with sigmoid septum. * Left ventricular systolic function is normal. * Ejection Fraction = 65-70%. * The left ventricular wall motion is normal. Right Ventricle * The right ventricle is normal in size and function. Atria * The left atrial size is normal. * Right atrial size is normal. * No ASD detected; PFO is not assessed. Mitral Valve * The mitral valve anatomy is normal. * There is no mitral valve stenosis. * There is trace mitral regurgitation. Tricuspid Valve * The tricuspid valve is normal. * There is no tricuspid stenosis. * There is trace tricuspid regurgitation. Aortic Valve * The aortic valve is trileaflet. * Aortic valve sclerosis mild, without significant aortic valvular stenosis. * No hemodynamically significant valvular aortic stenosis. * Trace aortic regurgitation. Pulmonic Valve * The pulmonic valve is not well visualized. Great Vessels * The aortic root is normal size. Pericardium/Pleural * There is no pericardial effusion. Great Vessels * Normal inferior vena cava diameter and respiratory variation suggests normal central venous pressure. Left Ventricular Diastolic Function * Grade I diastolic dysfunction, (abnormal relaxation pattern). MMode 2D Measurements and Calculations IVSd 1.0 cm IVSs 1.2 cm LVIDd 4.4 cm LVIDs 2.6 cm LVPWd 1.0 cm LVPWs 1.3 cm IVS/LVPW 1.0 FS 40.9 % EDV(Teich) 87.4 ml ESV(Teich) 24.5 ml EF(Teich) 72.0 % EDV(cubed) 84.8 ml ESV(cubed) 17.5 ml EF(cubed) 79.4 % % IVS thick 19.3 % % LVPW thick 22.2 % LV mass(C)d 153.8 grams LV mass(C)dI 74.4 grams/m\S\2 LV mass(C)s 95.4 grams LV mass(C)sI 46.2 grams/m\S\2 CO(Teich) 3.7 l/min CI(Teich) 1.8 l/min/m\S\2 SV(Teich) 62.9 ml SI(Teich) 30.4 ml/m\S\2 CO(cubed) 4.0 l/min CI(cubed) 1.9 l/min/m\S\2 SV(cubed) 67.3 ml SI(cubed) 32.6 ml/m\S\2 Ao root diam 3.7 cm Ao root area 10.7 cm\S\2 ACS 1.8 cm LA dimension 3.9 cm LA/Ao 1.1 LVAd ap4 27.2 cm\S\2 LVLd ap4 7.9 cm EDV(MOD-sp4) 78.0 ml LVAs ap4 13.2 cm\S\2 LVLs ap4 6.1 cm ESV(MOD-sp4) 24.0 ml EF(MOD-sp4) 69.2 % LVAd ap2 26.6 cm\S\2 LVLd ap2 7.9 cm EDV(MOD-sp2) 74.0 ml LVAs ap2 11.8 cm\S\2 LVLs ap2 6.1 cm ESV(MOD-sp2) 21.0 ml EF(MOD-sp2) 71.6 % CO(MOD-sp4) 3.2 l/min CI(MOD-sp4) 1.5 l/min/m\S\2 SV(MOD-sp4) 54.0 ml SI(MOD-sp4) 26.1 ml/m\S\2 CO(MOD-sp2) 3.1 l/min CI(MOD-sp2) 1.5 l/min/m\S\2 SV(MOD-sp2) 53.0 ml SI(MOD-sp2) 25.6 ml/m\S\2 Doppler Measurements and Calculations MV E max leatha 83.6 cm/sec MV A max leatha 79.7 cm/sec MV E/A 1.0 MV P1/2t max leatha 97.0 cm/sec MV P1/2t 62.9 msec MVA(P1/2t) 3.5 cm\S\2 MV dec slope 451.6 cm/sec\S\2 MV dec time 0.17 sec Ao V2 max 116.8 cm/sec Ao max PG 5.5 mmHg Ao max PG (full) 0.54 mmHg AI max leatha 428.7 cm/sec AI max PG 73.7 mmHg AI dec slope 205.3 cm/sec\S\2 AI P1/2t 611.5 msec LV V1 max PG 4.9 mmHg LV V1 max 110.8 cm/sec PA V2 max 86.9 cm/sec PA max PG 3.0 mmHg PI max leatha 225.3 cm/sec PI max PG 20.3 mmHg PI dec slope 189.6 cm/sec\S\2 PI P1/2t 348.1 msec TR max leatha 249.8 cm/sec
[2016-09-09] MEDS ORDERED: ISOSORBIDE MONONITRATE 30 MG TABCR PO ONE (14:30)
[2016-09-09 15:07] VITALS: BP 162/91; PULSE 94; TEMP 36.3; O2SAT 94
[2016-09-09 16:21] VITALS: BP 162/91; PULSE 94; TEMP 36.3; O2SAT 94
[2016-09-09] MEDS ORDERED: IMDSR30 PO (16:24)
--- NOTE | 2016-09-09 16:30 | Discharge Instructions ---
Discharge Instructions Admission Reason for Admission: Chest Pain Discharge Discharge Diagnosis / Problem: Atypical Chest pain Discharge Goals Goal(s): Decrease discomfort, Improve function Activity Recommendations Activity Limitations: resume your previous activity . Instructions / Follow-Up Instructions / Follow-Up Follow up with your Primary Care Physician in 1 week as advised Follow up with (Cardiology) on Sep 18 at 7:50am Seek immediate medical attention if your chest pain reoccurs or worsens Start taking Imdur as prescribed. Current Hospital Diet Patient's current hospital diet: AHA Diet (Heart Healthy), Diabetes Type 2 Diet Discharge Diet Recommended Diet: AHA Diet (Heart Healthy), Diabetes Type 2 Diet Pending Studies Studies pending at discharge: no Laboratory Results Hemoglobin A1c Test 09/09/16 06:02 Range/Units Estimated Average Glucose 143 mg/dl Hemoglobin A1c 6.6 H 4.5-5.6 % Lipid Panel Test 09/09/16 06:02 Range/Units Triglycerides Level 248 H 0-150 mg/dl Cholesterol Level 110 0-200 mg/dl HDL Cholesterol 27 mg/dl Cholesterol/HDL Ratio 4.1 LDL Cholesterol, Calculated 33 mg/dl Medical Emergencies . Who to Call and When: Medical Emergencies: If at any time you feel your situation is an emergency, please call 911 immediately. . Non-Emergent Contact Non-Emergency issues call your: Primary Care Provider, Clerical Investigator Call Non-Emergent contact if: your pain is worsening, your pain is unusual for you, your pain is concerning you, you have any medication questions . . "Provider Documentation" section prepared by Fareed Thrasher. VTE Core Measure Inpt VTE Proph given/why not?: Unfractionated heparin SQ
--- NOTE | 2016-09-09 18:43 | Discharge Summary ---
Discharge Summary Admission Date: Sep 08, 2016 at 19:09 Discharge Date: Sep 09, 2016 Discharge Disposition: Home Principal Diagnosis: Atypical Chest Pain Procedures: Chest Xray on admission: IMPRESSION: Mild bibasilar subsegmental atelectasis. Otherwise, no acute process within the chest. Venous duplex on admission: IMPRESSION: No evidence of lower extremity DVT EKG on admission: Normal sinus rhythm Right bundle branch block Abnormal ECG When compared with ECG of 08-AUG-2016 03:42, No significant change was found Repeat EKG on 09/09 AM: Normal sinus rhythm Right bundle branch block Abnormal ECG When compared with ECG of 08-SEP-2016 15:45, No significant change was found ECHO: * The left ventricle is normal in size. * There is mild concentric left ventricular hypertrophy. * The basal septum is thickened and angulated consistent with sigmoid septum. * The left ventricular wall motion is normal. * Left ventricular systolic function is normal. * Ejection Fraction = 65-70%. * Aortic valve sclerosis mild, without significant aortic valvular stenosis. * Trace aortic regurgitation. * There is trace mitral regurgitation. Consultations: Cardiology Pending Studies/Follow-Up: Follow up with your Primary Care Physician in 1 week as advised Follow up with (Cardiology) on Sep 18 at 7:50am Medication Reconciliation New Medications: Isosorbide Mononitrate (Isosorbide Mononitrate ER) 30 Mg Tabcr 30 MG PO QAM for 30 Days, #30 1 Refill Continued Medications: Ascorbic Acid (Vitamin C) 500 Mg Cap 500 MG PO DAILY Aspirin (Aspirin EC Low Dose) 81 Mg Ectab 81 MG PO Q2D Atenolol (Tenormin) 25 Mg Tab 25 MG PO DAILY Diphenoxylate/Atropine (Lomotil) Tab 1 TAB PO DIRECTED PRN for Diarrhea Eplerenone (Eplerenone) 25 Mg Tab 25 MG PO DAILY Furosemide (Lasix) 40 Mg Tab 40 MG PO DAILY, TAB Glipizide (Glucotrol) 10 Mg Tab 10 MG PO AMPM, 5 Refills Lorazepam (Ativan) 0.5 Mg Tab 0.5 MG PO Q6H PRN for Anxiety Metformin HCl (Metformin HCl ER) 500 Mg Tabcr 500 MG PO AMPM Multiple Vitamins W/ Minerals (Centrum Silver Adult 50+) 1 Tab Tab 1 TAB PO DAILY Omeprazole (Prilosec) 20 Mg Capcr 20 MG PO DAILY, 0 Refills Ranitidine (Zantac) 300 Mg Tab 300 MG PO HS, 0 Refills Rosuvastatin Calcium (Crestor) 5 Mg Tab 5 MG PO HS Tamsulosin Hcl (Flomax) 0.4 Mg Cap 0.4 MG PO QPM TAKE AFTER EVENING MEAL Tocopheryl Acet,Dl-Alpha (Vitamin E) 400 Inter.unit Cap 400 INTER.UNIT PO DAILY, 0 Refills Admission Information HPI (per Admitting provider): This is an 86 y/o male with PMHx of DM 2, GERD, Diastolic dysfunction on Lasix, HTN, Dyslipidemia and other problems as outlined below who presents to the ED c/ o L sided chest pain that began this afternoon. Pt reports that he was sitting on his couch around 1400 when he developed acute onset L sided chest pain that he describes as sharp 9/10 pain that radiated down his L arm. Sxs were unchanged with exertion. Pt received 1 nitro and 3 baby ASA en route to the ED which relieved his chest pain completely. Pt has never has similar sxs before. FmHx includes mother with CAD. Pt has chronic LE edema which is unchanged from his baseline. Pt currently currently lives at home with his daughter and son-in- law. He is typically fairly active ( mowing lawn, walking, etc) with no problems. Pt denies fever/chills, diaphoresis, SOB, abd pain, N/V, bowel or bladder issues,calf pain, lightheadedness/dizziness. In the ED, vitals are stable. Trop negative. EKG no ischemic change. Pt is currently chest pain free. He will be admitted for further evaluation and treatment. Physical Exam (per Admitting): General Appearance: WD/WN, no apparent distress, + pertinent finding (Pt is sitting up comfortably in bed ) Head: normocephalic, atraumatic Eyes: normal inspection ENT: hearing grossly normal Neck: supple Respiratory/Chest: chest non-tender, lungs clear, normal breath sounds, no respiratory distress Cardiovascular: regular rate, rhythm, no murmur Abdomen/GI: normal bowel sounds, non tender, soft Back: normal inspection Extremities/Musculoskelatal: no calf tenderness, + pedal edema (4+ pitting edema bilat; L>R), + swelling, + pertinent finding Neurologic/Psych: alert, normal mood/affect, oriented x 3 Skin: normal color, warm/dry Hospital Course This is an 86 y/o male with PMHx of DM 2, GERD, Diastolic dysfunction on Lasix, HTN, Dyslipidemia who presented to ED with L sided chest pain which resolved after Aspirin and NTG. ATYPICAL CHEST PAIN R/O ACS Presented with Left sided chest pain radiating down Left arm which relieved with nitro, aspirin Risk Factors: positive family history, DM II, HTN, Dyslipidemia EKG: negative for ischemic changes Troponin/CKMB: negative D-dimer: negative, CXR: Negative ECHO: Normal LV function and Normal LV wall motion Continue ASA, BB, statin Imdur started based on recommendations from cardiology. Appreciate Cardiology input: Ruled out ACS: cleared for discharge Chronic Bilateral LE swelling: Swelling unchanged from baseline per patient B/L LE duplex negative for DVT Continue Lasix and eplerenone DIASTOLIC CHF Significant LE edema; CXR clear Currently no signs of decompensation Last Echo 11/2014 EF 70% with grade 1 diastolic dysfunction Continue Lasix, eplerenone and BB Monitor I&O, daily weights DM II A1C:6.6 hold metformin and glipizide Continue ISS BPH continue flomax GERD continue Prilosec and Zantac HTN Continue atenolol, diuretics Will adjust meds if elevated persistently Currently asymptomatic DYSLIPIDEMIA continue statin DVT PROPHYLAXIS Heparin SQ CODE STATUS Full code Total time spent on discharge = This includes examination of the patient, discharge planning, medication reconciliation, and communication with other providers. Discharge Instructions Discharge Instructions Admission Reason for Admission: Chest Pain Discharge Discharge Diagnosis / Problem: Atypical Chest pain Discharge Goals Goal(s): Decrease discomfort, Improve function Activity Recommendations Activity Limitations: resume your previous activity . Instructions / Follow-Up Instructions / Follow-Up Follow up with your Primary Care Physician in 1 week as advised Follow up with (Cardiology) on Sep 18 at 7:50am Seek immediate medical attention if your chest pain reoccurs or worsens Start taking Imdur as prescribed. Current Hospital Diet Patient's current hospital diet: AHA Diet (Heart Healthy), Diabetes Type 2 Diet Discharge Diet Recommended Diet: AHA Diet (Heart Healthy), Diabetes Type 2 Diet Pending Studies Studies pending at discharge: no Laboratory Results Hemoglobin A1c Test 09/09/16 06:02 Range/Units Estimated Average Glucose 143 mg/dl Hemoglobin A1c 6.6 H 4.5-5.6 % Lipid Panel Test 09/09/16 06:02 Range/Units Triglycerides Level 248 H 0-150 mg/dl Cholesterol Level 110 0-200 mg/dl HDL Cholesterol 27 mg/dl Cholesterol/HDL Ratio 4.1 LDL Cholesterol, Calculated 33 mg/dl Medical Emergencies . Who to Call and When: Medical Emergencies: If at any time you feel your situation is an emergency, please call 911 immediately. . Non-Emergent Contact Non-Emergency issues call your: Primary Care Provider, Metal Spraying Machine Operator Call Non-Emergent contact if: your pain is worsening, your pain is unusual for you, your pain is concerning you, you have any medication questions . . "Provider Documentation" section prepared by Fareed Thrasher. VTE Core Measure Inpt VTE Proph given/why not?: Unfractionated heparin SQ
[2016-09-10] MEDS ORDERED: ISOSORBIDE MONONITRATE 30 MG TABCR PO SCH (09:00)
== END 2016-09-09 17:03 | disposition home or self-care (01) ==
LOC: ENRESERVTM → ENRESERVDT → EDBD 15:35 → C.EDB 15:36 → C.2T 19:09
PROVIDERS: ADMIT Hospitalist; ATTEND Internal Medicine
DX: R07.89 Other chest pain (principal); I50.30 Unspecified diastolic (congestive) heart failure; I10 Essential (primary) hypertension; E78.5 Hyperlipidemia, unspecified; J44.9 Chronic obstructive pulmonary disease, unspecified; N40.0 Benign prostatic hyperplasia without lower urinary tract symptoms; K21.9 Gastro-esophageal reflux disease without esophagitis; E11.9 Type 2 diabetes mellitus without complications; Z79.82 Long term (current) use of aspirin; Z87.891 Personal history of nicotine dependence; Z90.49 Acquired absence of other specified parts of digestive tract; Z88.5 Allergy status to narcotic agent; Z82.49 Family history of ischemic heart disease and other diseases of the circulatory system

== ENCOUNTER 2016-12-26 08:02 | Emergency (ER) | payer OTHER ==
[~2016-12-26] VITALS: Ht 160 cm; Wt 96.0 kg
[~2016-12-26 08:02] MED LIST changes: +ASPEC81 PO; -ASPI81TA28 PO; +IMDSR30 PO
[2016-12-26 08:10] VITALS: TEMP 36.8; Ht 160 cm; Wt 96.0 kg
[2016-12-26] MEDS ORDERED: VITA400C3 PO (08:20)
--- NOTE | 2016-12-26 08:26 | EMERGENCY ROOM VISIT NOTE ---
History Report prepared by Jessika: Luis F Solis Under the Supervision of: Dr. Montana Arnold M.D. First contact with patient: 08:11 Chief Complaint: CHEST PAIN Stated Complaint: CHEST PAIN Nursing Triage Summary: pt here with chest pain into left arm since this am. pt denies any cardiac hx. pt took 2 of wifes nitro wtih some relief. pt denies any nausea or sob History of Present Illness The patient is an 86 year old male who presents to the Emergency Room with complaints of resolving left-sided chest pain that started prior to arrival this morning. The patient says that the pain woke him up around 0530. He denies any cardiac history. The patient describes the pain as a burning. He says that the chest pain radiates down his left arm. He took 2 of his 's nitroglycerin with some relief. Currently, the patient states that his pain is almost gone now. He denies any throat pain, shortness of breath, abdominal pain , or new ankle swelling. Per the patient's , the patient takes Aspirin every other day, and was given Aspirin in the ambulance. The patient is diabetic , and takes Metformin. Source of History: patient, spouse/significant other Onset: Prior to arrival this morning around 0530 Position: chest (left) Symptom Intensity: currently pain almost gone Quality: burning Timing: other (resolving) Associated Symptoms: No SOB, No abdominal pain Note: Associated symptoms: Left arm pain. Denies throat pain, new ankle swelling. Review of Systems All systems have been listed, reviewed, and are negative other than those previously mentioned. Please see Additional Medical History Sheet. Past Medical & Surgical Medical Problems: (1) Anxiety (2) BPH (benign prostatic hyperplasia) (3) Chest pain (4) Diabetes mellitus, type II (5) Diastolic dysfunction (6) Dyslipidemia (7) GERD (gastroesophageal reflux disease) (8) HTN (hypertension) (9) Paroxysmal SVT (supraventricular tachycardia) Surgical Problems: (1) H/O umbilical hernia repair (2) History of back surgery (3) Hx of cholecystectomy Family History FH: CAD (coronary artery disease) Social History Smoking Status: Never Smoker Alcohol Use: none Drug Use: none Marital Status: Housing Status: lives with family Occupation Status: retired Current/Historical Medications Scheduled Ascorbic Acid (Vitamin C), 500 MG PO DAILY Aspirin (Aspirin EC Low Dose), 81 MG PO DAILY Atenolol (Tenormin), 25 MG PO DAILY Eplerenone (Eplerenone), 25 MG PO DAILY Furosemide (Lasix), 40 MG PO DAILY Glipizide (Glucotrol), 10 MG PO AMPM Isosorbide Mononitrate (Isosorbide Mononitrate ER), 30 MG PO QAM Metformin HCl (Metformin HCl ER), 500 MG PO AMPM Multiple Vitamins W/ Minerals (Centrum Silver Adult 50+), 1 TAB PO DAILY Omeprazole (Prilosec), 20 MG PO DAILY Ranitidine (Zantac), 300 MG PO HS Rosuvastatin Calcium (Crestor), 5 MG PO HS Tamsulosin Hcl (Flomax), 0.4 MG PO QPM Vitamin E (Vitamin E 400 Iu), 400 INTER.UNIT PO DAILY Scheduled PRN Diphenoxylate/Atropine (Lomotil), 1 TAB PO DIRECTED PRN for Diarrhea Lorazepam (Ativan), 0.5 MG PO Q6H PRN for Anxiety Nitroglycerin (Nitrostat), 1 TAB SL UD PRN for chest pain Allergies Coded Allergies: Morphine (Unverified Adverse Reaction, Unknown, NAUSEA AND CONFUSION, 09/08) Physical Exam Vital Signs Date Time Temp Pulse Resp B/P Pulse Ox O2 Delivery O2 Flow Rate FiO2 12/26/16 11:12 68 16 193/91 97 Room Air 75 193/94 71 200/86 12/26/16 10:25 66 16 190/84 12/26/16 09:28 64 16 193/94 97 Room Air 12/26/16 08:33 96 Room Air 12/26/16 08:12 66 12/26/16 08:10 36.8 70 18 188/86 96 Room Air Physical Exam GENERAL: Patient awake, alert, oriented x 3. Patient follows commands. Patient does not appear toxic. Patient is adequately hydrated and well- nourished. SKIN: No erythema, pallor, cyanosis or rash HEENT: Normal head, pupils equal, reactive to light and accommodation. LUNGS: Faint wheezes bilaterally. HEART: No murmurs. No gallops. No rubs ABDOMEN: Soft, nontender. No masses, no rebound, no hepatomegaly or splenomegaly. EXTREMITIES: No signs of trauma. 3+ chronic edema to left lower leg, 1+ to right lower leg. No calf or thigh tenderness. NEUROLOGIC: Cranial nerves II-XII within normal limits. No gross motor sensory function deficits. Medical Decision & Procedures ER Provider Diagnostic Interpretation: X ray results are stated below per my interpretation and the radiologist's interpretation. CHEST ONE VIEW PORTABLE CLINICAL HISTORY: Atypical chest pain COMPARISON STUDY: No previous studies for comparison. FINDINGS: The cardiac and mediastinal contours are normal. There is no evidence of focal pulmonary consolidation. There is no evidence of failure. No pleural effusions are visualized.[ There are minimal left basilar atelectatic changes. IMPRESSION: No active disease in the chest. Electronically signed by: Oz Tierney M.D. 12/26/2016 8:50 AM Dictated Date/Time: 12/26/2016 8:50 AM Laboratory Results 12/26/16 08:50 12/26/16 08:50 Test 12/26/16 08:50 12/26/16 10:31 Red Blood Count 4.50 M/uL (4.7-6.1) Mean Corpuscular Volume 94.9 fL (80-100) Mean Corpuscular Hemoglobin 32.0 pg (25-34) Mean Corpuscular Hemoglobin Concent 33.7 g/dl (32-36) RDW Standard Deviation 46.5 fL (36.4-46.3) RDW Coefficient of Variation 13.3 % (11.5-14.5) Mean Platelet Volume 9.4 fL (7.4-10.4) Anion Gap 4.0 mmol/L (3-11) Est Creatinine Clear Calc Drug Dose 43.7 ml/min Estimated GFR () 62.2 Estimated GFR (Non- 53.7 BUN/Creatinine Ratio 16.8 (10-20) Calcium Level 8.5 mg/dl (8.5-10.1) Bedside Troponin I 0.000 ng/ml (0-0.045) Laboratory results as stated above per my review. ECG Indication: chest pain Rate (beats per minute): 67 Rhythm: normal sinus Findings: no acute ischemic change, no ectopy, other (RBBB) Change: no significant change (compared to 09/09/16) ED Course 0814: Past medical records reviewed. The patient was evaluated in room A3. A complete history and physical examination was performed. 1102: I reevaluated the patient and he is pain free. He is ready to go home. The patient verbally expressed understanding and agreement of the treatment plan. The patient will be discharged. Medical Decision Prior records/ancillary studies reviewed. Triage Nursing notes reviewed. Differential diagnosis: Etiologies such as cardiac ischemia, aortic dissection, pulmonary embolism, pneumonia, pneumothorax, musculoskeletal, infections, pericarditis, myocarditis , esophageal rupture, gastrointestinal, as well as others were entertained. The patient is here with chest pain similar to what he experienced in the past. The patient took 2 nitroglycerin with complete resolution of his pain. 2 sets of troponins were negative. Rest of the labs were evaluated. Please see above. The patient remained asymptomatic while here in the ED. I believe the patient can safely return home but will require follow-up by his family physician. The patient was given a prescription for nitroglycerin. Impression Primary Impression: Substernal precordial chest pain Scribe Attestation The scribe's documentation has been prepared under my direction and personally reviewed by me in its entirety. I confirm that the note above accurately reflects all work, treatment, procedures, and medical decision making performed by me. Departure Information Dispostion Home / Self-Care Prescriptions Nitroglycerin (Nitrostat) 0.4 Mg Tab 1 TAB SL UD Y for chest pain, #100 TAB Prov: Montana Arnold M.D. 12/26/16 Referrals Shy Montes.Mathew PA-C (PCP) Patient Instructions ED Chest Pain Angina Stable, My [facility] Additional Instructions Take one nitroglycerin under your tongue every 5 minutes for chest pain. Do not exceed 3 doses in one day. Return here if chest pain does not resolve within 20 minutes of the nitroglycerin. Continue all of your current medications as prescribed.
[2016-12-26 08:33] VITALS: O2SAT 96
--- NOTE | 2016-12-26 08:51 | DIAGNOSTIC IMAGING REPORT ---
CHEST ONE VIEW PORTABLE CLINICAL HISTORY: Atypical chest pain COMPARISON STUDY: No previous studies for comparison. FINDINGS: The cardiac and mediastinal contours are normal. There is no evidence of focal pulmonary consolidation. There is no evidence of failure. No pleural effusions are visualized.[ There are minimal left basilar atelectatic changes. IMPRESSION: No active disease in the chest. Electronically signed by: Oz Tierney M.D. 12/26/2016 8:50 AM Dictated Date/Time: 12/26/2016 8:50 AM
[2016-12-26 09:09] LABS: HEMATOCRIT 42.7 % (42-52); MEAN CELL VOLUME 94.9 fL (80-100); MEAN CORPUSCULAR HGB CONC 33.7 g/dl (32-36); MEAN PLATELET VOLUME 9.4 fL (7.4-10.4); PLATELET COUNT 178 K/uL (130-400); WHITE BLOOD COUNT 8.29 K/uL (4.8-10.8)
[2016-12-26 09:27] LABS: BUN/CREATININE RATIO 16.8 (10-20); CALCIUM 8.5 mg/dl (8.5-10.1); CREATININE 1.2 mg/dl (0.60-1.40); POTASSIUM 4.6 mmol/L (3.5-5.1)
[2016-12-26 11:12] VITALS: BP 200/86; PULSE 71; O2SAT 97
[2016-12-26] MEDS ORDERED: NTRGSL/4 SL (11:13)
== END 2016-12-26 11:25 | disposition home or self-care (01) ==
LOC: EDBD 08:02 → C.EDA 08:05
DX: R07.2 Precordial pain (principal); F41.9 Anxiety disorder, unspecified; N40.0 Benign prostatic hyperplasia without lower urinary tract symptoms; E11.9 Type 2 diabetes mellitus without complications; E78.5 Hyperlipidemia, unspecified; K21.9 Gastro-esophageal reflux disease without esophagitis; I10 Essential (primary) hypertension; I47.1 Supraventricular tachycardia; Z79.82 Long term (current) use of aspirin

== ENCOUNTER → 2017-01-28 | Outpatient (CLI) | payer OTHER ==
[~2017-01-28] MED LIST changes: +NTRGSL/4 SL; -VITA400C15 PO; +VITA400C3 PO
[2017-01-28 12:51] LABS: HEMATOCRIT 44.8 % (42-52); MEAN CELL VOLUME 95.9 fL (80-100); MEAN CORPUSCULAR HEMOGLOBIN 32.8 pg (25-34); MEAN CORPUSCULAR HGB CONC 34.2 g/dl (32-36); MEAN PLATELET VOLUME 10.3 fL (7.4-10.4); PLATELET COUNT 204 K/uL (130-400); RED BLOOD COUNT 4.67 M/uL (4.7-6.1); WHITE BLOOD COUNT 8.77 K/uL (4.8-10.8)
[2017-01-28 12:58] LABS: URINE APPEARANCE CLEAR (CLEAR); URINE BILIRUBIN NEG (NEG); URINE COLOR YELLOW; URINE NITRITE NEG (NEG); URINE SPECIFIC GRAVITY 1.017 (1.000-1.030); UROBILINOGEN NEG (NEG)
[2017-01-28 13:08] LABS: MANUAL MICROSCOPIC REQUIRED? NO; REVIEW REQ? NO
[2017-01-28 13:26] LABS: ALT/SGPT 32 U/L (12-78); BLOOD UREA NITROGEN 19 mg/dl (7-18); BUN/CREATININE RATIO 14.3 (10-20); CARBON DIOXIDE 25 mmol/L (21-32); CHLORIDE 100 mmol/L (98-107); CHOLESTEROL 123 mg/dl (0-200); GLUCOSE 161 mg/dl (70-99); POTASSIUM 4.3 mmol/L (3.5-5.1); SODIUM 136 mmol/L (136-145); TRIGLYCERIDES 205 mg/dl (0-150); URIC ACID 5.4 mg/dl (2.6-7.2); VERY LOW DENSITY LIPOPROT CALC 41 mg/dl
[2017-01-28 13:29] LABS: CALCIUM 9.1 mg/dl (8.5-10.1)
[2017-01-28 13:32] LABS: ESTIMATED AVERAGE GLUCOSE 177 mg/dl; HA1C FLAG Normal (Normal)
[2017-01-28 13:37] LABS: ALKALINE PHOSPHATASE 89 U/L (45-117); AST/SGOT 19 U/L (15-37); CHOLESTEROL/HDL RATIO 4.1; HDL CHOLESTEROL 30 mg/dl; LDL CHOLESTEROL CALCULATED 52 mg/dl
== END | disposition home or self-care (01) ==
LOC: C.LABPVFM 08:06
PROVIDERS: ATTEND Physician Assistant
DX: E11.9 Type 2 diabetes mellitus without complications (principal); N40.0 Benign prostatic hyperplasia without lower urinary tract symptoms; I10 Essential (primary) hypertension; C66.9 Malignant neoplasm of unspecified ureter

== ENCOUNTER 2017-07-29 19:11 | Emergency (ER) | payer OTHER ==
[~2017-07-29] VITALS: Ht 165.1 cm; Wt 97.2 kg
[~2017-07-29 19:11] MED LIST changes: -ASPEC81 PO; -NTRGSL/4 SL
[2017-07-29] MEDS ORDERED: ASPEC81 PO (19:23)
[2017-07-29 19:27] VITALS: TEMP 36.6; Ht 165.1 cm; Wt 97.2 kg
--- NOTE | 2017-07-29 19:29 | EMERGENCY ROOM VISIT NOTE ---
History Report prepared by Jessika: Julian Samaniego Under the Supervision of: Dr. Sam Kincaid M.D. First contact with patient: 19:16 Stated Complaint: CHF, AB DISTENTED, PEDAL EDEMA History of Present Illness The patient is a 87 year old male who presents to the Emergency Room with complaints of fluid retention that began two days ago. He has a past medical history of CHF and COPD. At this time, the patient stopped taking his Lasix medication because it makes him "pee too much." Since then, his abdomen became distended and his feet are more swollen that usual. He also has developed a cough with some fatigue as well. His left leg is more chronically more swollen than his right leg. He denies any fevers, chest pain, shortness of breath, nausea, vomiting, diarrhea, or any other abnormal symptoms. He is not on Coumadin. He states that he has not gained any weight. Source of History: patient Onset: two days ago Position: other (Global) Symptom Intensity: moderate Quality: other (Fluid retention) Timing: constant Associated Symptoms: + cough, No fevers, No chest pain, No SOB, No nausea, No vomiting, No abdominal pain, No urinary symptoms Note: He states that his abdomen feels more distended than usual and his feet are more swollen. Review of Systems See HPI for pertinent positives and negatives. A total of ten systems were reviewed and were otherwise negative. Past Medical & Surgical Medical Problems: (1) Anxiety (2) BPH (benign prostatic hyperplasia) (3) Chest pain (4) Diabetes mellitus, type II (5) Diastolic dysfunction (6) Dyslipidemia (7) GERD (gastroesophageal reflux disease) (8) HTN (hypertension) (9) Paroxysmal SVT (supraventricular tachycardia) Surgical Problems: (1) H/O umbilical hernia repair (2) History of back surgery (3) Hx of cholecystectomy Family History FH: CAD (coronary artery disease) Social History Smoking Status: Never Smoker Alcohol Use: none Drug Use: none Marital Status: Housing Status: lives with family Occupation Status: retired Current/Historical Medications Scheduled Ascorbic Acid (Vitamin C), 500 MG PO DAILY Aspirin (Aspirin EC Low Dose), 81 MG PO DAILY Atenolol (Tenormin), 25 MG PO DAILY Eplerenone (Inspra), 25 MG PO DAILY Furosemide (Lasix), 40 MG PO DAILY Glipizide (Glucotrol), 10 MG PO QPM Glipizide (Glipizide), 20 MG PO QAM Isosorbide Mononitrate (Isosorbide Mononitrate ER), 30 MG PO DAILY Metformin HCl (Metformin HCl ER), 500 MG PO AMPM Multiple Vitamins W/ Minerals (Centrum Silver Adult 50+), 1 TAB PO DAILY Omeprazole (Prilosec), 20 MG PO DAILY Ranitidine (Zantac), 300 MG PO HS Rosuvastatin Calcium (Crestor), 5 MG PO HS Tamsulosin Hcl (Flomax), 0.4 MG PO QPM Vitamin E (Vitamin E 400 Iu), 400 INTER.UNIT PO DAILY Scheduled PRN Diphenoxylate/Atropine (Lomotil), 1 TAB PO DIRECTED PRN for Diarrhea Lorazepam (Ativan), 0.5 MG PO Q6H PRN for Anxiety Allergies Coded Allergies: Morphine (Unverified Adverse Reaction, Unknown, NAUSEA AND CONFUSION, 09/08) Physical Exam Vital Signs Date Time Temp Pulse Resp B/P (MAP) Pulse Ox O2 Delivery O2 Flow Rate FiO2 07/29/17 23:06 64 18 162/87 96 07/29/17 21:15 62 20 151/67 95 Room Air 07/29/17 19:53 97 Room Air 07/29/17 19:27 36.6 68 20 182/98 96 Room Air 07/29/17 19:27 65 Physical Exam GENERAL: Awake, alert, uncomfortable appearing, in no distress HENT: Normocephalic, atraumatic. Oropharynx reveals dry mucous membranes. EYES: Normal conjunctiva. Sclera non-icteric. NECK: Supple. No nuchal rigidity. FROM. No JVD. RESPIRATORY: Diminished breath bibasilar breath sounds with scattered rhonchi. CARDIAC: Regular rate, normal rhythm. Extremities warm and well perfused. Pulses equal. ABDOMEN: Soft, distended. No tenderness to palpation. No rebound or guarding. No masses. RECTAL: Deferred. MUSCULOSKELETAL: Chest examination reveals no tenderness. The back is symmetrical on inspection without obvious abnormality. There is no CVA tenderness to palpation. No joint edema. LOWER EXTREMITIES: 3+ edema bilaterally, left greater than right. No discoloration. NEURO: Normal sensorium. No sensory or motor deficits noted. SKIN: No rash or jaundice noted. Medical Decision & Procedures ER Provider Diagnostic Interpretation: Radiology results as stated below per my review and radiologist interpretation: CHEST ONE VIEW PORTABLE CLINICAL HISTORY: 87 years-old Male presenting with CHEST PAIN. TECHNIQUE: Portable upright AP view of the chest was obtained. COMPARISON: 12/26/2016. FINDINGS: Atherosclerosis of aortic arch. Cardiac silhouette top normal in size likely due to AP technique. Mildly low lung volumes comparison to prior. Lungs and pleural spaces clear. Degenerative changes of the thoracic spine. Cystectomy clips may be present. IMPRESSION: 1. No acute cardiopulmonary disease. Electronically signed by: Hesham Rhoades M.D. 07/29/2017 7:41 PM Dictated Date/Time: 07/29/2017 7:41 PM VENOUS DOPPLER LWR EXT BILA CLINICAL HISTORY: 87 years-old Male presenting with BLE swelling, history of CHF and abdominal distention. TECHNIQUE: Real-time grayscale and color and spectral Doppler ultrasound imaging of the veins of the bilateral lower extremities was performed. Compression and augmentation were also utilized. COMPARISON: 09/08/2016. FINDINGS: Right: Common femoral vein: Patent. Greater saphenous vein: Patent. Deep femoral vein: Patent. Femoral vein: Patent. Popliteal vein: Patent. Calf veins: Limited visualization secondary to subcutaneous edema. Left: Common femoral vein: Patent. Greater saphenous vein: Patent. Deep femoral vein: Patent. Femoral vein: Patent. Popliteal vein: Patent. Calf veins: Limited visualization secondary to subcutaneous edema. Other: None. IMPRESSION: No evidence of deep venous thrombosis. Electronically signed by: Hesham Rhoades M.D. 07/29/2017 9:02 PM Dictated Date/Time: 07/29/2017 9:01 PM Laboratory Results 07/29/17 21:11 Red Blood Count 4.32, Mean Corpuscular Volume 94.2, Mean Corpuscular Hemoglobin 32.9, Mean Corpuscular Hemoglobin Concent 34.9, Mean Platelet Volume 10.0, Neutrophils (%) (Auto) 75.9, Lymphocytes (%) (Auto) 11.8, Monocytes (%) (Auto) 11.3, Eosinophils (%) (Auto) 0.2, Basophils (%) (Auto) 0.2, Neutrophils # (Auto ) 8.12, Lymphocytes # (Auto) 1.26, Monocytes # (Auto) 1.21, Eosinophils # (Auto ) 0.02, Basophils # (Auto) 0.02 07/29/17 21:11 Test 07/29/17 19:47 07/29/17 21:11 Influenza Type A (RT-PCR) Neg for Influ A (NEG) Influenza Type A Antigen Neg for Influ A (NEG) Influenza Type B Antigen Neg for Influ B (NEG) Influenza Type B (RT-PCR) Neg for Influ B (NEG) White Blood Count 10.69 K/uL (4.8-10.8) Red Blood Count 4.32 M/uL (4.7-6.1) Hemoglobin 14.2 g/dL (14.0-18.0) Hematocrit 40.7 % (42-52) Mean Corpuscular Volume 94.2 fL (80-100) Mean Corpuscular Hemoglobin 32.9 pg (25-34) Mean Corpuscular Hemoglobin Concent 34.9 g/dl (32-36) Platelet Count 179 K/uL (130-400) Mean Platelet Volume 10.0 fL (7.4-10.4) Neutrophils (%) (Auto) 75.9 % Lymphocytes (%) (Auto) 11.8 % Monocytes (%) (Auto) 11.3 % Eosinophils (%) (Auto) 0.2 % Basophils (%) (Auto) 0.2 % Neutrophils # (Auto) 8.12 K/uL (1.4-6.5) Lymphocytes # (Auto) 1.26 K/uL (1.2-3.4) Monocytes # (Auto) 1.21 K/uL (0.11-0.59) Eosinophils # (Auto) 0.02 K/uL (0-0.5) Basophils # (Auto) 0.02 K/uL (0-0.2) RDW Standard Deviation 45.8 fL (36.4-46.3) RDW Coefficient of Variation 13.2 % (11.5-14.5) Immature Granulocyte % (Auto) 0.6 % Immature Granulocyte # (Auto) 0.06 K/uL (0.00-0.02) Anion Gap 8.0 mmol/L (3-11) Est Creatinine Clear Calc Drug Dose 50.6 ml/min Estimated GFR () 71.8 Estimated GFR (Non- 61.9 BUN/Creatinine Ratio 13.1 (10-20) Calcium Level 8.6 mg/dl (8.5-10.1) Total Bilirubin 0.8 mg/dl (0.2-1) Direct Bilirubin 0.2 mg/dl (0-0.2) Aspartate Amino Transf (AST/SGOT) 16 U/L (15-37) Alanine Aminotransferase (ALT/SGPT) 25 U/L (12-78) Alkaline Phosphatase 64 U/L (45-117) Troponin I < 0.015 ng/ml (0-0.045) Pro-B-Type Natriuretic Peptide 481 pg/ml (0-1800) Total Protein 6.6 gm/dl (6.4-8.2) Albumin 3.2 gm/dl (3.4-5.0) Lipase 75 U/L (73-393) Laboratory results reviewed by me ECG Indication: other (Edema) Rate (beats per minute): 63 Rhythm: normal sinus Findings: RBBB, no acute ischemic change, other (normal axis) Comparison ECG Date: December 26, 2016 Change: no significant change ED Course 1915: The patient was evaluated in room C3. A complete history and physical exam was performed. 2252: I reevaluated the patient. Discussed results and discharge instructions: He verbalized understanding and agreement. The patient is ready for discharge. Medical Decision I reviewed the patient's past medical history, medications, and the nursing notes as described above. Differential diagnosis includes but is not limited to: CHF, ACS, pneumonia, bronchitis, PE, liver disease, and venous stasis. The patient is an 87-year-old gentleman with a past medical history of CHF on Lasix as well as COPD who presents emergency Department with worsening lower extremity swelling and abdominal distention in the setting of the patient intentionally not taking his Lasix because of the frequency of his urination however family concerned about the worsening swelling and brings them the patient emergent department today history of present illness. On arrival the patient is relatively well-appearing, no acute distress, afebrile stable vital signs. He has 3+ bilateral lower extremity pitting edema. Workup artery unremarkable with BNP within normal limits. Her lower extremity duplex negative for DVT. Chest x-ray unremarkable as well. Patient with normal oxygen saturation on room air and without any new dyspnea. Given there is a clear etiology to the patient's worsening swelling due to his medication noncompliance no indication for further evaluation or admission at this time. Patient was counseled on the importance of taking his medications as prescribed new follow-up with his PCP. Findings and plan for follow-up reviewed with patient. Patient agreeable and d/c'd per discharge instructions. Medication Reconcilliation Current Medication List: was personally reviewed by me Blood Pressure Screening Patient's blood pressure: Elevated blood pressure Blood pressure disposition: Referred to PCP Impression Primary Impression: Bilateral lower extremity edema Scribe Attestation The scribe's documentation has been prepared under my direction and personally reviewed by me in its entirety. I confirm that the note above accurately reflects all work, treatment, procedures, and medical decision making performed by me. Departure Information Dispostion Home / Self-Care Referrals Shy Montes.Mathew PA-C (PCP) Forms HOME CARE DOCUMENTATION FORM, IMPORTANT VISIT INFORMATION, WORK / SCHOOL INSTRUCTIONS Patient Instructions ED Leg Swelling Bilateral, My [facility] Additional Instructions Please follow up with your primary care physician in the next 1-3 days for re- evaluation. Your leg swelling is likely due to not taking your lasix. Otherwise, your exam, EKG, chest xray, and lab results did not show signs of an emergent condition at this time. You should take your medications as prescribed. Return to the emergency department for worsening symptoms as described in the accompanying instructions.
--- NOTE | 2017-07-29 19:43 | DIAGNOSTIC IMAGING REPORT ---
CHEST ONE VIEW PORTABLE CLINICAL HISTORY: 87 years-old Male presenting with CHEST PAIN. TECHNIQUE: Portable upright AP view of the chest was obtained. COMPARISON: 12/26/2016. FINDINGS: Atherosclerosis of aortic arch. Cardiac silhouette top normal in size likely due to AP technique. Mildly low lung volumes comparison to prior. Lungs and pleural spaces clear. Degenerative changes of the thoracic spine. Cystectomy clips may be present. IMPRESSION: 1. No acute cardiopulmonary disease. Electronically signed by: Hesham Rhoades M.D. 07/29/2017 7:41 PM Dictated Date/Time: 07/29/2017 7:41 PM
[2017-07-29 19:53] VITALS: O2SAT 97
[2017-07-29 21:01] LABS: INFLUENZA A PCR Neg for Influ A (NEG); INFLUENZA B PCR Neg for Influ B (NEG)
--- NOTE | 2017-07-29 21:04 | DIAGNOSTIC IMAGING REPORT ---
VENOUS DOPPLER LWR EXT BILA CLINICAL HISTORY: 87 years-old Male presenting with BLE swelling, history of CHF and abdominal distention. TECHNIQUE: Real-time grayscale and color and spectral Doppler ultrasound imaging of the veins of the bilateral lower extremities was performed. Compression and augmentation were also utilized. COMPARISON: 09/08/2016. FINDINGS: Right: Common femoral vein: Patent. Greater saphenous vein: Patent. Deep femoral vein: Patent. Femoral vein: Patent. Popliteal vein: Patent. Calf veins: Limited visualization secondary to subcutaneous edema. Left: Common femoral vein: Patent. Greater saphenous vein: Patent. Deep femoral vein: Patent. Femoral vein: Patent. Popliteal vein: Patent. Calf veins: Limited visualization secondary to subcutaneous edema. Other: None. IMPRESSION: No evidence of deep venous thrombosis. Electronically signed by: Hesham Rhoades M.D. 07/29/2017 9:02 PM Dictated Date/Time: 07/29/2017 9:01 PM
[2017-07-29] MEDS ORDERED: ISOS-11 PO (21:14)
[2017-07-29] MEDS ORDERED: GLIP10TA10 PO (21:14)
[2017-07-29] MEDS ORDERED: INS/25 PO (21:14)
[2017-07-29 21:28] LABS: BASO % 0.2 %; BASO ABS # 0.02 K/uL (0-0.2); COMPLETE YES; EOS % 0.2 %; HEMATOCRIT 40.7 % (42-52); IG% 0.6 %; LYMPH % 11.8 %; LYMPH ABS # 1.26 K/uL (1.2-3.4); MEAN CELL VOLUME 94.2 fL (80-100); MEAN CORPUSCULAR HEMOGLOBIN 32.9 pg (25-34); MEAN CORPUSCULAR HGB CONC 34.9 g/dl (32-36); MONO % 11.3 %; NEUT % 75.9 %; PLATELET COUNT 179 K/uL (130-400); RED BLOOD COUNT 4.32 M/uL (4.7-6.1); WHITE BLOOD COUNT 10.69 K/uL (4.8-10.8)
[2017-07-29 21:59] LABS: POTASSIUM 3.9 mmol/L (3.5-5.1); SODIUM 135 mmol/L (136-145)
[2017-07-29 22:04] LABS: ALKALINE PHOSPHATASE 64 U/L (45-117); ALT/SGPT 25 U/L (12-78); AST/SGOT 16 U/L (15-37); BLOOD UREA NITROGEN 14 mg/dl (7-18); CALCIUM 8.6 mg/dl (8.5-10.1); CARBON DIOXIDE 25 mmol/L (21-32); CHLORIDE 102 mmol/L (98-107); CREATININE 1.06 mg/dl (0.60-1.40); GLUCOSE 90 mg/dl (70-99)
[2017-07-29 22:43] LABS: BUN/CREATININE RATIO 13.1 (10-20)
[2017-07-29 23:06] VITALS: BP 162/87; PULSE 64; O2SAT 96
== END 2017-07-29 23:10 | disposition home or self-care (01) ==
LOC: EDBD 19:11 → C.EDC 19:12
DX: R60.0 Localized edema (principal); Z91.14 Patient's other noncompliance with medication regimen; I11.0 Hypertensive heart disease with heart failure; I50.9 Heart failure, unspecified; J44.9 Chronic obstructive pulmonary disease, unspecified; R05 Cough; R53.83 Other fatigue; F41.9 Anxiety disorder, unspecified; N40.0 Benign prostatic hyperplasia without lower urinary tract symptoms; E11.9 Type 2 diabetes mellitus without complications; E78.5 Hyperlipidemia, unspecified; I47.1 Supraventricular tachycardia; Z79.82 Long term (current) use of aspirin; Z79.84 Long term (current) use of oral hypoglycemic drugs

== ENCOUNTER 2017-08-02 11:22 | Emergency (ER) | payer OTHER ==
[~2017-08-02] VITALS: Ht 165.1 cm; Wt 97.4 kg
[~2017-08-02 11:22] MED LIST changes: +ASPI-320 PO; -EPLE25TA3 PO; +GLIP10TA10 PO; -IMDSR30 PO; +INS/25 PO; +ISOS-11 PO
[2017-08-02 11:25] VITALS: TEMP 36.9; Ht 165.1 cm; Wt 97.4 kg
[2017-08-02 11:34] VITALS: O2SAT 93
--- NOTE | 2017-08-02 11:38 | EMERGENCY ROOM VISIT NOTE ---
History Report prepared by Jessika: Rufina Aldana Under the Supervision of: Dr. Montana Arnold M.D. 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 EMS notes the patient took 1 NTG prior to EMS arrival. EMS administered 2 NTG, 4 baby ASA, 4 mg Zofran, and 4 mg morphine. EMS notes his blood sugar was 169 upon arrival. The patient has a history of CHF. The patient notes his abdomen is distended, though it looks better than two days ago. The patient currently rates his pain a 7/10 in severity. He notes baseline swelling in his left leg. He denies any abdominal pain, nausea, vomiting, diarrhea, and shortness of breath. 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 Review of Systems All systems have been listed, reviewed, and are negative other than those previously mentioned. Please see Additional Medical History Sheet. Past Medical & Surgical Medical Problems: (1) Anxiety (2) BPH (benign prostatic hyperplasia) (3) Chest pain (4) Diabetes mellitus, type II (5) Diastolic dysfunction (6) Dyslipidemia (7) GERD (gastroesophageal reflux disease) (8) HTN (hypertension) (9) Paroxysmal SVT (supraventricular tachycardia) Surgical Problems: (1) H/O umbilical hernia repair (2) History of back surgery (3) Hx of cholecystectomy Family History Diabetes mellitus FH: CAD (coronary artery disease) Social History Smoking Status: Former Smoker Alcohol Use: none Drug Use: none Marital Status: Housing Status: lives with family Occupation Status: retired Current/Historical Medications Scheduled Ascorbic Acid (Vitamin C), 500 MG PO DAILY Aspirin (Aspirin EC Low Dose), 81 MG PO DAILY Atenolol (Tenormin), 25 MG PO DAILY Eplerenone (Inspra), 25 MG PO DAILY Furosemide (Lasix), 40 MG PO DAILY Glipizide (Glucotrol), 10 MG PO QPM Glipizide (Glipizide), 20 MG PO QAM Isosorbide Mononitrate (Isosorbide Mononitrate ER), 30 MG PO DAILY Metformin HCl (Metformin HCl ER), 500 MG PO AMPM Multiple Vitamins W/ Minerals (Centrum Silver Adult 50+), 1 TAB PO DAILY Omeprazole (Prilosec), 20 MG PO DAILY Ranitidine (Zantac), 300 MG PO HS Rosuvastatin Calcium (Crestor), 5 MG PO HS Tamsulosin Hcl (Flomax), 0.4 MG PO QPM Vitamin E (Vitamin E 400 Iu), 400 INTER.UNIT PO DAILY Scheduled PRN Diphenoxylate/Atropine (Lomotil), 1 TAB PO DIRECTED PRN for Diarrhea Lorazepam (Ativan), 0.5 MG PO Q6H PRN for Anxiety Allergies Coded Allergies: Morphine (Unverified Adverse Reaction, Unknown, NAUSEA AND CONFUSION, 09/08) Physical Exam Vital Signs Date Time Temp Pulse Resp B/P (MAP) Pulse Ox O2 Delivery O2 Flow Rate FiO2 08/02/17 15:49 65 18 121/75 98 08/02/17 15:09 69 20 129/67 95 Room Air 08/02/17 13:13 66 20 125/71 96 Room Air 08/02/17 11:47 62 08/02/17 11:34 93 Room Air 08/02/17 11:25 36.9 71 18 123/55 95 Room Air 08/02/17 11:25 95 Room Air Physical Exam GENERAL: Patient awake, alert, oriented x 3. Patient follows commands. Patient does not appear toxic. Patient is adequately hydrated and well- nourished. SKIN: No erythema, pallor, cyanosis or rash HEENT: Normal head, pupils equal, reactive to light and accommodation. LUNGS: Clear to auscultation. No wheezes, no rales, no rhonchi. HEART: No murmurs. No gallops. No rubs ABDOMEN: Soft, nontender and distended. EXTREMITIES: No signs of trauma. 3+ pretibial edema to LLE. No calf or thigh tenderness. 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 NEUROLOGIC: Cranial nerves II-XII within normal limits. No gross motor sensory function deficits. Medical Decision & Procedures ER Provider Diagnostic Interpretation: Radiology results as stated below per my review and radiologist interpretation: CHEST ONE VIEW PORTABLE CLINICAL HISTORY: Atypical chest pain. Flank pain. COMPARISON STUDY: No previous studies for comparison. FINDINGS: The cardiac and mediastinal contours are normal. There is no evidence of focal pulmonary consolidation. There is no evidence of failure. No pleural effusions are visualized.[ Increased markings at the lung bases are likely atelectatic. IMPRESSION: Mild basilar atelectasis. Otherwise unremarkable AP portable chest. Electronically signed by: Oz Tierney M.D. 08/02/2017 11:54 AM Dictated Date/Time: 08/02/2017 11:53 AM Laboratory Results 08/02/17 12:16 08/02/17 12:16 Test 08/02/17 12:16 08/02/17 14:11 Red Blood Count 4.39 M/uL (4.7-6.1) Mean Corpuscular Volume 94.8 fL (80-100) Mean Corpuscular Hemoglobin 33.3 pg (25-34) Mean Corpuscular Hemoglobin Concent 35.1 g/dl (32-36) RDW Standard Deviation 46.1 fL (36.4-46.3) RDW Coefficient of Variation 13.3 % (11.5-14.5) Mean Platelet Volume 10.0 fL (7.4-10.4) Anion Gap 7.0 mmol/L (3-11) Est Creatinine Clear Calc Drug Dose 36.8 ml/min Estimated GFR () 48.7 Estimated GFR (Non- 42.0 BUN/Creatinine Ratio 14.9 (10-20) Calcium Level 8.6 mg/dl (8.5-10.1) Bedside Troponin I < 0.030 ng/ml (0-0.045) Laboratory results as stated above per my review. ECG Indication: chest pain Rate (beats per minute): 67 Rhythm: sinus rhythm Findings: nonspecific-ST abn, PVC, RBBB Change: Similar when compared to ECGs from Aug 2016. ED Course 1124: Past medical records reviewed. The patient was evaluated in room C6. A complete history and physical examination was performed. 1458: I reassessed the patient at this time. He had an ambulatory trial and passed without difficulty. He notes his chest pain has resolved and he feels fine. I discussed the results and treatment plan with the patient. I answered all pertaining questions that he had. He expressed understanding and verbalized agreement. The patient will be discharged home. Medical Decision Prior records/ancillary studies reviewed. Triage Nursing notes reviewed. The patient's history was concerning for chest pain. Differential diagnosis: Etiologies such as cardiac ischemia, aortic dissection, pulmonary embolism, pneumonia, pneumothorax, musculoskeletal, infections, pericarditis, myocarditis , esophageal rupture, gastrointestinal, as well as others were entertained. Labs, EKG and imaging were obtained. Please see above. The patient is here with chest pain which resolved shortly after arrival. 2 sets of cardiac enzymes and EKGs were negative. The patient later in the course of his stay related that he had some muscular pain yesterday that may be related to the pain he had today. I do not believe he has a cardiopulmonary cause for his pain. The patient walked around the emergency department prior to departure and had no pain. I believe that he can safely return home but will need to follow-up with his family physician. Medication Reconcilliation Current Medication List: was personally reviewed by me Blood Pressure Screening Patient's blood pressure: Normal blood pressure Impression Primary Impression: Substernal precordial chest pain Scribe Attestation The scribe's documentation has been prepared under my direction and personally reviewed by me in its entirety. I confirm that the note above accurately reflects all work, treatment, procedures, and medical decision making performed by me. Departure Information Dispostion Home / Self-Care Referrals Shy Montes.Mathew PA-C (PCP) Forms HOME CARE DOCUMENTATION FORM, IMPORTANT VISIT INFORMATION Additional Instructions Continue all of your current medications as prescribed. Follow-up with your family physician within the next 5 days. Return here sooner if your chest pain returns. REST
--- NOTE | 2017-08-02 11:55 | DIAGNOSTIC IMAGING REPORT ---
CHEST ONE VIEW PORTABLE CLINICAL HISTORY: Atypical chest pain. Flank pain. COMPARISON STUDY: No previous studies for comparison. FINDINGS: The cardiac and mediastinal contours are normal. There is no evidence of focal pulmonary consolidation. There is no evidence of failure. No pleural effusions are visualized.[ Increased markings at the lung bases are likely atelectatic. IMPRESSION: Mild basilar atelectasis. Otherwise unremarkable AP portable chest. Electronically signed by: Oz Tierney M.D. 08/02/2017 11:54 AM Dictated Date/Time: 08/02/2017 11:53 AM
[2017-08-02 12:33] LABS: HEMATOCRIT 41.6 % (42-52); HEMOGLOBIN 14.6 g/dL (14.0-18.0); MEAN CELL VOLUME 94.8 fL (80-100); MEAN CORPUSCULAR HEMOGLOBIN 33.3 pg (25-34); MEAN CORPUSCULAR HGB CONC 35.1 g/dl (32-36); PLATELET COUNT 188 K/uL (130-400); RED CELL DISTRIBUTION WIDTH CV 13.3 % (11.5-14.5); RED CELL DISTRIBUTION WIDTH SD 46.1 fL (36.4-46.3); WHITE BLOOD COUNT 9.36 K/uL (4.8-10.8)
[2017-08-02 12:49] LABS: CALCIUM 8.6 mg/dl (8.5-10.1); CREATININE 1.46 mg/dl (0.60-1.40); POTASSIUM 3.6 mmol/L (3.5-5.1)
[2017-08-02 15:49] VITALS: BP 121/75; PULSE 65; O2SAT 98
== END 2017-08-02 15:50 | disposition home or self-care (01) ==
LOC: EDBD 11:22 → C.EDC 11:23
DX: R07.2 Precordial pain (principal); I50.9 Heart failure, unspecified; N40.0 Benign prostatic hyperplasia without lower urinary tract symptoms; F41.9 Anxiety disorder, unspecified; E11.9 Type 2 diabetes mellitus without complications; I47.1 Supraventricular tachycardia; Z90.49 Acquired absence of other specified parts of digestive tract; Z83.3 Family history of diabetes mellitus; Z82.49 Family history of ischemic heart disease and other diseases of the circulatory system; Z87.891 Personal history of nicotine dependence; Z79.82 Long term (current) use of aspirin; Z79.899 Other long term (current) drug therapy

== ENCOUNTER 2017-09-09 23:58 | Emergency (ER) | payer OTHER ==
[~2017-09-09] VITALS: Ht 157.5 cm; Wt 94.2 kg
[~2017-09-09 23:58] MED LIST changes: +ASPEC81 PO; -ASPI-320 PO
[2017-09-10 00:01] VITALS: TEMP 37.1; Ht 157.5 cm; Wt 94.2 kg
[2017-09-10 00:13] VITALS: O2SAT 97
[2017-09-10 00:30] LABS: HEMATOCRIT 42.4 % (42-52); HEMOGLOBIN 15.1 g/dL (14.0-18.0); MEAN CELL VOLUME 93.4 fL (80-100); MEAN CORPUSCULAR HEMOGLOBIN 33.3 pg (25-34); MEAN CORPUSCULAR HGB CONC 35.6 g/dl (32-36); MEAN PLATELET VOLUME 10.2 fL (7.4-10.4); PLATELET COUNT 185 K/uL (130-400); RED CELL DISTRIBUTION WIDTH CV 13.1 % (11.5-14.5); RED CELL DISTRIBUTION WIDTH SD 44.4 fL (36.4-46.3); WHITE BLOOD COUNT 9.91 K/uL (4.8-10.8)
[2017-09-10 00:45] LABS: ALBUMIN 3.3 gm/dl (3.4-5.0); CALCIUM 8.4 mg/dl (8.5-10.1); CREATININE 1.54 mg/dl (0.60-1.40); POTASSIUM 3.6 mmol/L (3.5-5.1)
[2017-09-10 00:51] LABS: CKMB 1.2 ng/ml (0.5-3.6); TOTAL PROTEIN 7.2 gm/dl (6.4-8.2)
[2017-09-10] MEDS ORDERED: FUROSEMIDE 40 MG/4 ML VIAL IV STA (01:08)
[2017-09-10] MEDS ORDERED: NITROGLYCERIN OINT 2% 1GM PACKET EXT ONE (01:15)
--- NOTE | 2017-09-10 01:18 | EMERGENCY ROOM VISIT NOTE ---
History Report prepared by Jessika: Barry Bernstein Under the Supervision of: Dr. Marva Grider M.D. First contact with patient: 00:57 Chief Complaint: CHEST PAIN Stated Complaint: CHEST PAIN Nursing Triage Summary: Pt brought in by EMS. Pt with left sided chest pain that started 1 hour ago. It radiates to left shoulder. Pt does report he ate johns peppers for supper and has been burping since. Pt given ASA and NTG enroute. Pt rates pain 6/10 from 05/19. History of Present Illness The patient is an 87 year old male who presents to the Emergency Room with complaints of constant left sided chest pain start around 2200 tonight which has improved. He states that he is only having a little bit of pain. He states that the pain radiates into his left arm. The patient took his medications, and then afterwards started having pain. His family states that the patient was given nitroglycerin at 2245, and he was burping after having some soda. The patient's family additionally state that the patient has been getting more full recently after eating. The patient took aspirin this morning, and he got some prior to arrival. The patient has a history of diabetes, and he used to smoke " 4 packs of cigarettes per day." He has never had a heart attack before. He denies any leg swelling or fever. Source of History: patient, family Onset: 2200 Position: chest Symptom Intensity: a little bit of pain Timing: constant Associated Symptoms: No fevers Review of Systems See HPI for pertinent positives & negatives. A total of 10 systems reviewed and were otherwise negative. Past Medical & Surgical Medical Problems: (1) Anxiety (2) BPH (benign prostatic hyperplasia) (3) Chest pain (4) Diabetes mellitus, type II (5) Diastolic dysfunction (6) Dyslipidemia (7) GERD (gastroesophageal reflux disease) (8) HTN (hypertension) (9) Paroxysmal SVT (supraventricular tachycardia) Surgical Problems: (1) H/O umbilical hernia repair (2) History of back surgery (3) Hx of cholecystectomy Family History Diabetes mellitus FH: CAD (coronary artery disease) Social History Smoking Status: Former Smoker Alcohol Use: none Drug Use: none Marital Status: Housing Status: lives with family Occupation Status: retired Current/Historical Medications Scheduled Ascorbic Acid (Vitamin C), 500 MG PO DAILY Aspirin (Aspirin EC Low Dose), 81 MG PO DAILY Atenolol (Tenormin), 25 MG PO DAILY Eplerenone (Inspra), 25 MG PO DAILY Furosemide (Lasix), 40 MG PO DAILY Glipizide (Glucotrol), 10 MG PO QPM Glipizide (Glipizide), 20 MG PO QAM Isosorbide Mononitrate (Isosorbide Mononitrate ER), 30 MG PO DAILY Metformin HCl (Metformin HCl ER), 500 MG PO AMPM Multiple Vitamins W/ Minerals (Centrum Silver Adult 50+), 1 TAB PO DAILY Omeprazole (Prilosec), 20 MG PO DAILY Ranitidine (Zantac), 300 MG PO HS Rosuvastatin Calcium (Crestor), 5 MG PO HS Tamsulosin Hcl (Flomax), 0.4 MG PO QPM Vitamin E (Vitamin E 400 Iu), 400 INTER.UNIT PO DAILY Scheduled PRN Lorazepam (Ativan), 0.5 MG PO Q6H PRN for Anxiety Allergies Coded Allergies: Morphine (Unverified Adverse Reaction, Unknown, NAUSEA AND CONFUSION, ) Physical Exam Vital Signs Date Time Temp Pulse Resp B/P (MAP) Pulse Ox O2 Delivery O2 Flow Rate FiO2 09/10/17 03:52 69 16 148/83 96 Room Air 09/10/17 03:00 67 20 171/73 96 09/10/17 02:05 66 20 167/88 97 09/10/17 01:00 70 16 170/87 96 Room Air 09/10/17 00:13 97 Room Air 09/10/17 00:12 97 Room Air 09/10/17 00:06 96 Room Air 09/10/17 00:04 71 09/10/17 00:01 37.1 73 16 157/92 94 Room Air Physical Exam Vital signs reviewed. General: Well-appearing male, in no significant distress. HEENT: No scleral icterus, PERRLA, neck supple. Atraumatic. Cardiovascular: Regular rate and rhythm with occasional ectopy Pulmonary: Clear to auscultation bilaterally, normal work of breathing. Abdomen: Soft, nontender, nondistended, positive bowel sounds. Musculoskeletal: Atraumatic, no peripheral edema. Neurologic: Patient awake alert and oriented x 3, full strength in all 4 extremities. Cranial nerves 2 through 12 grossly intact. Skin: Warm, dry, no rash Medical Decision & Procedures ER Provider Diagnostic Interpretation: X-ray results as stated below per interpretation by me and the radiologist: One View Chest: Pulmonary vascular congestion. No focal lung consolidation. No pneumothorax. Laboratory Results 09/09/17 23:45 09/09/17 23:45 Test 09/09/17 23:45 09/10/17 02:59 Red Blood Count 4.54 M/uL (4.7-6.1) Mean Corpuscular Volume 93.4 fL (80-100) Mean Corpuscular Hemoglobin 33.3 pg (25-34) Mean Corpuscular Hemoglobin Concent 35.6 g/dl (32-36) RDW Standard Deviation 44.4 fL (36.4-46.3) RDW Coefficient of Variation 13.1 % (11.5-14.5) Mean Platelet Volume 10.2 fL (7.4-10.4) Prothrombin Time 10.7 SECONDS (9.0-12.0) Prothromb Time International Ratio 1.0 (0.9-1.1) Activated Partial Thromboplast Time 26.0 SECONDS (21.0-31.0) Partial Thromboplastin Ratio 1.0 Anion Gap 8.0 mmol/L (3-11) Est Creatinine Clear Calc Drug Dose 32.4 ml/min Estimated GFR () 45.7 Estimated GFR (Non- 39.4 BUN/Creatinine Ratio 10.1 (10-20) Calcium Level 8.4 mg/dl (8.5-10.1) Total Bilirubin 0.7 mg/dl (0.2-1) Aspartate Amino Transf (AST/SGOT) 21 U/L (15-37) Alanine Aminotransferase (ALT/SGPT) 30 U/L (12-78) Alkaline Phosphatase 76 U/L (45-117) Total Creatine Kinase 63 U/L (39-308) Creatine Kinase MB 1.2 ng/ml (0.5-3.6) Creatine Kinase MB Ratio 1.9 (0-3.0) Total Protein 7.2 gm/dl (6.4-8.2) Albumin 3.3 gm/dl (3.4-5.0) Globulin 3.9 gm/dl (2.5-4.0) Albumin/Globulin Ratio 0.8 (0.9-2) Chemistry Specimen Hemolysis Bedside Troponin I < 0.030 ng/ml (0-0.045) Laboratory results per my review. Medications Administered Medications (Trade) Dose Ordered Sig/Federica Route Start Time Stop Time Status Last Admin Dose Admin Furosemide (Lasix Inj) 20 mg NOW STAT IV 09/10/17 01:08 09/10/17 01:10 DC 09/10/17 01:19 20 MG Nitroglycerin (Nitroglycerin 2% Oint) 1 inch NOW ONCE EXT 09/10/17 01:15 09/10/17 01:16 DC 09/10/17 02:03 1 INCH ECG Indication: chest pain Rate (beats per minute): 69 Rhythm: normal sinus Findings: PVC, RBBB, no acute ischemic change, other (Poor baseline for interpretation) Change: Patient's electrocardiogram interpreted by me. ED Course 0057: Past medical records reviewed. The patient was evaluated in room A3. A complete history and physical examination was performed. 0108: Lasix 20mg IV 0115: Nitroglycerin 1inch EXT 0249: I reevaluated the patient, and he was resting, and he would like to go home. 0359: Upon reevaluation, the patient appeared to have improvement of his symptoms. I discussed findings with him. He verbalized agreement of the treatment plan. He was discharged home. Medical Decision Differential diagnosis: Acute coronary syndrome, pulmonary embolus, aortic dissection, musculoskeletal pain, pneumonia, pleural effusion, pneumothorax This patient was evaluated and appeared to be in no significant distress. Patient had received aspirin prior to arrival. He was given nitroglycerin with some improvement. Patient's laboratory work reveals negative cardiac enzymes 2. EKG reveals a right bundle-branch block with PVC but no acute ischemia. In review the patient's records, he has had similar presentations previously. Chest x-ray was obtained and is largely concerning for pulmonary vascular congestion. The patient did receive Lasix 20 mg IV. He did have some diuresis. The patient was offered admission to the hospital however he has declined. He will have close follow-up with his primary care provider this week. He has agreed to return to the hospital immediately for worsening of symptoms or any medical concerns. Medication Reconcilliation Current Medication List: was personally reviewed by me Blood Pressure Screening Patient's blood pressure: Elevated blood pressure Blood pressure disposition: Elevated BP felt to be situational Impression Primary Impression: Chest pain radiating to upper extremity Scribe Attestation The scribe's documentation has been prepared under my direction and personally reviewed by me in its entirety. I confirm that the note above accurately reflects all work, treatment, procedures, and medical decision making performed by me. Departure Information Dispostion Home / Self-Care Referrals Shy Montes.Mathew PA-C (PCP) Forms HOME CARE DOCUMENTATION FORM, IMPORTANT VISIT INFORMATION Patient Instructions My [facility] Additional Instructions Diagnosis: Chest pain Continue your medications as prescribed. Use nitroglycerin if the chest pain returns as directed. Follow-up with your physician as soon as possible, hopefully tomorrow, for consideration of further cardiac testing. Return to the emergency department for worsening of symptoms or any medical concerns.
[2017-09-10 03:52] VITALS: BP 148/83; PULSE 69; O2SAT 96
--- NOTE | 2017-09-10 07:05 | DIAGNOSTIC IMAGING REPORT ---
SINGLE VIEW CHEST CLINICAL HISTORY: Atypical chest pain. FINDINGS: An AP, portable, upright chest radiograph is compared to study dated 08/02/2017. The examination is degraded by portable technique and patient rotation. The heart is mildly enlarged and there is atherosclerotic calcification of the thoracic aorta. There is mild pulmonary vascular congestion. Bibasilar atelectasis is observed. The lungs are otherwise clear. No large pleural effusion or pneumothorax is seen. The skeletal structures are osteopenic. The bony thorax is grossly intact. IMPRESSION: Cardiomegaly with evidence of mild congestive failure. Electronically signed by: Dawit Huang M.D. 09/10/2017 7:04 AM Dictated Date/Time: 09/10/2017 7:03 AM
== END 2017-09-10 04:10 | disposition home or self-care (01) ==
LOC: EDBD 23:58 → C.EDA 23:59
DX: R07.9 Chest pain, unspecified (principal); F41.9 Anxiety disorder, unspecified; N40.0 Benign prostatic hyperplasia without lower urinary tract symptoms; E11.9 Type 2 diabetes mellitus without complications; E78.5 Hyperlipidemia, unspecified; K21.9 Gastro-esophageal reflux disease without esophagitis; I10 Essential (primary) hypertension; I47.1 Supraventricular tachycardia; Z83.3 Family history of diabetes mellitus; Z87.891 Personal history of nicotine dependence; Z79.82 Long term (current) use of aspirin

== ENCOUNTER 2017-10-28 00:47 | Emergency (ER) | payer OTHER ==
[~2017-10-28] VITALS: Ht 162.6 cm; Wt 99.6 kg
[~2017-10-28 00:47] MED LIST changes: -DIPH-416 PO
[2017-10-28 00:59] VITALS: TEMP 36.6; Ht 162.6 cm; Wt 99.6 kg
--- NOTE | 2017-10-28 01:12 | EMERGENCY ROOM VISIT NOTE ---
History Report prepared by Jessika: Johann Bro Under the Supervision of: Dr. Tawanna Leal D.O. First contact with patient: 00:51 Chief Complaint: CHEST PAIN Stated Complaint: CHEST PAIN History of Present Illness The patient is an 87 year old male who presents to the Emergency Room with complaints of constant, left-sided chest discomfort beginning 3 hours ago. He currently rates his discomfort a 6/10 in severity. The patient states he was sitting down watching television when his symptoms began. He reports he received nitroglycerin and aspirin in the ambulance that lowered his pain from a 10/10 to a 6/10. The patient notes this has happened before. He states he has a history of GERD and does not believe this is the cause. The patient denies nausea, vomiting, shortness of breath, sweating, abdominal pain, and new leg swelling. Source of History: patient Onset: 3 hours ago Position: chest (left) Symptom Intensity: 6/10 Timing: constant (3 hours ago) Modifying Factors (Relieving): other (nitroglycerin and aspirin) Associated Symptoms: No SOB, No nausea, No vomiting, No abdominal pain Note: Denies: sweating, new leg swelling Review of Systems See HPI for pertinent positives & negatives. A total of 10 systems reviewed and were otherwise negative. Past Medical & Surgical Medical Problems: (1) Anxiety (2) BPH (benign prostatic hyperplasia) (3) Chest pain (4) Diabetes mellitus, type II (5) Diastolic dysfunction (6) Dyslipidemia (7) GERD (gastroesophageal reflux disease) (8) HTN (hypertension) (9) Paroxysmal SVT (supraventricular tachycardia) Surgical Problems: (1) H/O umbilical hernia repair (2) History of back surgery (3) Hx of cholecystectomy Family History Diabetes mellitus FH: CAD (coronary artery disease) Social History Smoking Status: Former Smoker Alcohol Use: none Drug Use: none Marital Status: Housing Status: lives with family Occupation Status: retired Current/Historical Medications Scheduled Ascorbic Acid (Vitamin C), 500 MG PO DAILY Aspirin (Aspirin EC Low Dose), 81 MG PO DAILY Atenolol (Tenormin), 25 MG PO DAILY Eplerenone (Inspra), 25 MG PO DAILY Furosemide (Lasix), 40 MG PO DAILY Glipizide (Glucotrol), 10 MG PO QPM Glipizide (Glipizide), 20 MG PO QAM Isosorbide Mononitrate (Isosorbide Mononitrate ER), 30 MG PO DAILY Metformin HCl (Metformin HCl ER), 500 MG PO AMPM Multiple Vitamins W/ Minerals (Centrum Silver Adult 50+), 1 TAB PO DAILY Omeprazole (Prilosec), 20 MG PO DAILY Ranitidine (Zantac), 300 MG PO HS Rosuvastatin Calcium (Crestor), 5 MG PO HS Tamsulosin Hcl (Flomax), 0.4 MG PO QPM Vitamin E (Vitamin E 400 Iu), 400 INTER.UNIT PO DAILY Scheduled PRN Lorazepam (Ativan), 0.5 MG PO Q6H PRN for Anxiety Allergies Coded Allergies: Morphine (Unverified Adverse Reaction, Unknown, NAUSEA AND CONFUSION, 10/28) Physical Exam Vital Signs Date Time Temp Pulse Resp B/P (MAP) Pulse Ox O2 Delivery O2 Flow Rate FiO2 10/28/17 05:02 69 15 173/81 94 10/28/17 04:17 65 10/28/17 04:01 164/71 10/28/17 04:00 69 16 168/69 90 10/28/17 03:30 67 16 92 10/28/17 03:01 173/75 10/28/17 02:55 67 157/73 91 Room Air 10/28/17 01:55 65 22 129/78 96 Room Air 10/28/17 00:59 36.6 85 24 170/81 94 Room Air 10/28/17 00:59 94 Room Air 10/28/17 00:59 76 Physical Exam HEENT: Head - normocephalic and atraumatic Pupils are equal, round, and reactive to light. Extraocular eye muscles are intact, and sclera are anicteric. Nose - moist nasal mucosa without discharge. Mouth - moist buccal mucosa. Oropharynx is nonerythematous and there is no tonsillar exudate or edema noted. Neck: Supple; no JVD, nuchal rigidity, cervical lymphadenopathy, or auscultated bruits. Heart: Regular rate and rhythm. There is a normal S1 and S2 with no murmurs, clicks, or gallops appreciated. Lungs: Clear to auscultation bilaterally with no wheezes, rales, or rhonchi. Abdomen: Soft, completely nontender, nondistended, with good bowel sounds. There are no palpable pulsatile masses or hepatosplenomegaly. There is no guarding, rigidity, or rebound noted. Extremities: No evidence of cyanosis and clubbing. There are easily palpable peripheral pulses. There is 3+ pitting edema to the right lower extremity and 4 + pitting edema to the left lower extremity. The edema is present up to the knee bilaterally. Skin: warm and dry with good turgor and no rashes. Medical Decision & Procedures ER Provider Diagnostic Interpretation: X-ray results as stated below per interpretation by me Portable Chest x-ray One View per my interpretation: Cardiomegaly, no obvious heart failure. When compared to 09/10/17 the patient's cardiomegaly is unchanged. Laboratory Results 10/28/17 01:50 Red Blood Count 4.31, Mean Corpuscular Volume 92.3, Mean Corpuscular Hemoglobin 32.5, Mean Corpuscular Hemoglobin Concent 35.2, Mean Platelet Volume 9.9, Neutrophils (%) (Auto) 73.3, Lymphocytes (%) (Auto) 12.6, Monocytes (%) (Auto) 12.8, Eosinophils (%) (Auto) 0.2, Basophils (%) (Auto) 0.4, Neutrophils # (Auto ) 7.66, Lymphocytes # (Auto) 1.31, Monocytes # (Auto) 1.33, Eosinophils # (Auto ) 0.02, Basophils # (Auto) 0.04 10/28/17 01:50 Test 10/28/17 01:50 10/28/17 04:01 White Blood Count 10.43 K/uL (4.8-10.8) Red Blood Count 4.31 M/uL (4.7-6.1) Hemoglobin 14.0 g/dL (14.0-18.0) Hematocrit 39.8 % (42-52) Mean Corpuscular Volume 92.3 fL (80-100) Mean Corpuscular Hemoglobin 32.5 pg (25-34) Mean Corpuscular Hemoglobin Concent 35.2 g/dl (32-36) Platelet Count 171 K/uL (130-400) Mean Platelet Volume 9.9 fL (7.4-10.4) Neutrophils (%) (Auto) 73.3 % Lymphocytes (%) (Auto) 12.6 % Monocytes (%) (Auto) 12.8 % Eosinophils (%) (Auto) 0.2 % Basophils (%) (Auto) 0.4 % Neutrophils # (Auto) 7.66 K/uL (1.4-6.5) Lymphocytes # (Auto) 1.31 K/uL (1.2-3.4) Monocytes # (Auto) 1.33 K/uL (0.11-0.59) Eosinophils # (Auto) 0.02 K/uL (0-0.5) Basophils # (Auto) 0.04 K/uL (0-0.2) RDW Standard Deviation 44.5 fL (36.4-46.3) RDW Coefficient of Variation 13.2 % (11.5-14.5) Immature Granulocyte % (Auto) 0.7 % Immature Granulocyte # (Auto) 0.07 K/uL (0.00-0.02) Anion Gap 7.0 mmol/L (3-11) Est Creatinine Clear Calc Drug Dose 40.8 ml/min Estimated GFR () 55.6 Estimated GFR (Non- 47.9 BUN/Creatinine Ratio 12.9 (10-20) Calcium Level 8.2 mg/dl (8.5-10.1) Total Bilirubin 0.5 mg/dl (0.2-1) Aspartate Amino Transf (AST/SGOT) 18 U/L (15-37) Alanine Aminotransferase (ALT/SGPT) 26 U/L (12-78) Alkaline Phosphatase 85 U/L (45-117) Pro-B-Type Natriuretic Peptide 245 pg/ml (0-1800) Total Protein 6.9 gm/dl (6.4-8.2) Albumin 3.2 gm/dl (3.4-5.0) Globulin 3.7 gm/dl (2.5-4.0) Albumin/Globulin Ratio 0.9 (0.9-2) Troponin I < 0.015 ng/ml (0-0.045) Laboratory results per my review. Medications Administered Medications (Trade) Dose Ordered Sig/Federica Route Start Time Stop Time Status Last Admin Dose Admin Hydromorphone HCl (Dilaudid Inj) 1 mg NOW STAT IV 10/28/17 01:57 10/28/17 01:58 DC 10/28/17 02:03 1 MG Ondansetron HCl (Zofran Inj) 4 mg NOW STAT IV 10/28/17 03:51 10/28/17 03:52 DC 10/28/17 04:06 4 MG Procedure 0157: Ordered Hydromorphone HCl 1mg IV 0351: Ordered Ondansetron HCl 4mg IV ECG Per My Interpretation Indication: chest pain Rate (beats per minute): 82 Findings: PVC (in trigeminy), RBBB Comparison ECG Date: 09/10/17 Change: PVC are now present. ED Course 0054: The patient was evaluated in room B11B. A complete history and physical examination were performed. Nursing notes and previous electronic medical records were reviewed. IV lock was established and labs were drawn as above. A 12-lead EKG was obtained as described above. The patient had a chest x-ray as described above. 0157: Ordered Hydromorphone HCl 1mg IV 0316: I reevaluated the patient and discussed current exam and lab findings. His chest pain is gone, but he developed nausea after the medication. He notes the nausea then resolved. 0347: I reevaluated the patient. He is slightly nauseous. A troponin was repeated. 0351: Ordered Ondansetron HCl 4mg IV. The second troponin was normal. 0458: Upon reevaluation, the patient is still chest pain free, slightly nauseous , but would like to be discharged. I discussed findings and results with him. He verbalized agreement of the treatment plan. The patient was discharged home. Medical Decision The patient is an 87 year old male who presents to the ED with left sided chest pain. Differential diagnosis includes GERD, angina, ACS, STEMI, costochondritis , pleurisy. Lab results show: normal WBC, normal renal function, stable H&H, glucose of 161 , normal LFTs, negative troponin, negative repeat troponin. This is an 87-year-old male patient presents to the emergency department with left-sided chest pain. The patient has had multiple previous visits to the emergency department with chest pain. Patient also has a history of reflux. The patient received a dose of Dilaudid with moderate relief of his symptoms but then developed some nausea. His vitals remained stable. I reviewed multiple previous records with the patient presented with similar symptoms and the workup was negative. I have asked the patient to follow-up with PCP if the symptoms persist. Medication Reconcilliation Current Medication List: was personally reviewed by me Blood Pressure Screening Patient's blood pressure: Normal blood pressure Blood pressure disposition: Did not require urgent referral Resolved on its own. Impression Primary Impression: Left sided chest pain Scribe Attestation The scribe's documentation has been prepared under my direction and personally reviewed by me in its entirety. I confirm that the note above accurately reflects all work, treatment, procedures, and medical decision making performed by me. Departure Information Dispostion Home / Self-Care Referrals Shy Montes.Mathew PA-C (PCP) Forms HOME CARE DOCUMENTATION FORM, IMPORTANT VISIT INFORMATION Patient Instructions ED Chest Pain Atypical Unkn Cause, [facility] Additional Instructions Rest. take a bland diet. Return to the ER if chest pain returns. Follow up with Dr. Shetty this week
[2017-10-28 01:57] LABS: BASO % 0.4 %; BASO ABS # 0.04 K/uL (0-0.2); EOS % 0.2 %; EOS ABS # 0.02 K/uL (0-0.5); HEMATOCRIT 39.8 % (42-52); IG# 0.07 K/uL (0.00-0.02); LYMPH % 12.6 %; LYMPH ABS # 1.31 K/uL (1.2-3.4); MEAN CELL VOLUME 92.3 fL (80-100); MEAN CORPUSCULAR HEMOGLOBIN 32.5 pg (25-34); MEAN CORPUSCULAR HGB CONC 35.2 g/dl (32-36); MEAN PLATELET VOLUME 9.9 fL (7.4-10.4); MONO % 12.8 %; MONO ABS # 1.33 K/uL (0.11-0.59); NEUT % 73.3 %; NEUT ABS # 7.66 K/uL (1.4-6.5); PLATELET COUNT 171 K/uL (130-400); RED CELL DISTRIBUTION WIDTH CV 13.2 % (11.5-14.5); RED CELL DISTRIBUTION WIDTH SD 44.5 fL (36.4-46.3); WHITE BLOOD COUNT 10.43 K/uL (4.8-10.8)
[2017-10-28] MEDS ORDERED: HYDROmorphone INJ 1 MG/ML SYR IV STA (01:57)
[2017-10-28 02:17] LABS: ALBUMIN 3.2 gm/dl (3.4-5.0); ALT/SGPT 26 U/L (12-78); AST/SGOT 18 U/L (15-37); BLOOD UREA NITROGEN 17 mg/dl (7-18); CALCIUM 8.2 mg/dl (8.5-10.1); CARBON DIOXIDE 28 mmol/L (21-32); CREATININE 1.31 mg/dl (0.60-1.40); GLUCOSE 161 mg/dl (70-99); POTASSIUM 3.8 mmol/L (3.5-5.1); SODIUM 134 mmol/L (136-145)
[2017-10-28 02:22] LABS: ALKALINE PHOSPHATASE 85 U/L (45-117); TOTAL PROTEIN 6.9 gm/dl (6.4-8.2)
[2017-10-28] MEDS ORDERED: ONDANSETRON INJ 2 MG/ML 2 ML VIAL IV STA (03:51)
[2017-10-28 05:02] VITALS: BP 173/81; PULSE 69; O2SAT 94
--- NOTE | 2017-10-28 06:36 | DIAGNOSTIC IMAGING REPORT ---
CHEST ONE VIEW PORTABLE CLINICAL HISTORY: Atypical chest pain COMPARISON STUDY: September 10, 2017 FINDINGS: The heart is at the upper limits of normal in size. There is no overt failure. There is no lobar consolidation. There is minor basilar atelectatic change. There are no significant pleural effusions.[ IMPRESSION: Mild basilar atelectasis. No evidence of overt failure. No pleural effusions identified Electronically signed by: Oz Tierney M.D. 10/28/2017 6:34 AM Dictated Date/Time: 10/28/2017 6:33 AM
== END 2017-10-28 05:17 | disposition home or self-care (01) ==
LOC: EDBD 00:47 → C.EDB 00:48
DX: R07.89 Other chest pain (principal); R11.0 Nausea; K21.9 Gastro-esophageal reflux disease without esophagitis; E11.9 Type 2 diabetes mellitus without complications; I11.0 Hypertensive heart disease with heart failure; I47.1 Supraventricular tachycardia; I50.30 Unspecified diastolic (congestive) heart failure; E78.5 Hyperlipidemia, unspecified; Z87.891 Personal history of nicotine dependence; Z79.82 Long term (current) use of aspirin; Z79.84 Long term (current) use of oral hypoglycemic drugs; Z88.6 Allergy status to analgesic agent; Z83.3 Family history of diabetes mellitus; Z82.49 Family history of ischemic heart disease and other diseases of the circulatory system

== ENCOUNTER 2017-12-05 16:15 | Emergency (ER) | payer OTHER ==
[~2017-12-05] VITALS: Ht 167.6 cm; Wt 90.0 kg
--- NOTE | 2017-12-05 16:08 | EMERGENCY ROOM VISIT NOTE ---
History Report prepared by Jessika: Brie Mcgarry Under the Supervision of: Kiara HerediaO. First contact with patient: 16:07 Stated Complaint: BREATHING DIFF. History of Present Illness The patient is a 87 year old male who presents to the Emergency Room with complaints of persistent breathing difficulties which worsened today. He reports that he saw his doctor one day ago, who treated him for a possible pneumonia or bronchitis. The patient states that he took his first dose of Zithromax today. He notes that he has been coughing more frequently, stating that he sometimes coughs up clear mucous. His breathing worsens when he lays flat, noting that he is not short of breath when he is sitting up.The patient denies any chest pain, swelling in his legs, or muscle aches. He reports that he never gets a flu shot, does not use an inhaler, and denies a history of blood clots. Source of History: patient Onset: today Position: other (respiratory) Quality: other (breathing difficulties ) Timing: other (persistent) Modifying Factors (Worsening): other (laying flat) Modifying Factors (Relieving): other (sitting up) Associated Symptoms: + cough (clear mucous), No chest pain Note: Patient denies any swelling in his legs or muscle aches. Review of Systems See HPI for pertinent positives & negatives. A total of 10 systems reviewed and were otherwise negative. Past Medical & Surgical Medical Problems: (1) Anxiety (2) BPH (benign prostatic hyperplasia) (3) Chest pain (4) Diabetes mellitus, type II (5) Diastolic dysfunction (6) Dyslipidemia (7) GERD (gastroesophageal reflux disease) (8) HTN (hypertension) (9) Paroxysmal SVT (supraventricular tachycardia) Surgical Problems: (1) H/O umbilical hernia repair (2) History of back surgery (3) Hx of cholecystectomy Family History Diabetes mellitus FH: CAD (coronary artery disease) Social History Smoking Status: Never Smoker Smokeless Tobacco Use: No Alcohol Use: none Drug Use: none Housing Status: lives with family Occupation Status: retired Current/Historical Medications Scheduled Albuterol Hfa (Ventolin Hfa), 2 PUFF INH Q4 Ascorbic Acid (Vitamin C), 500 MG PO DAILY Aspirin (Aspirin EC Low Dose), 81 MG PO DAILY Atenolol (Tenormin), 25 MG PO DAILY Eplerenone (Inspra), 25 MG PO DAILY Furosemide (Lasix), 40 MG PO DAILY Glipizide (Glucotrol), 10 MG PO QPM Glipizide (Glipizide), 20 MG PO QAM Isosorbide Mononitrate (Isosorbide Mononitrate ER), 30 MG PO DAILY Metformin HCl (Metformin HCl ER), 500 MG PO AMPM Multiple Vitamins W/ Minerals (Centrum Silver Adult 50+), 1 TAB PO DAILY Omeprazole (Prilosec), 20 MG PO DAILY Ranitidine (Zantac), 300 MG PO HS Rosuvastatin Calcium (Crestor), 5 MG PO HS Tamsulosin Hcl (Flomax), 0.4 MG PO QPM Vitamin E (Vitamin E 400 Iu), 400 INTER.UNIT PO DAILY Scheduled PRN Lorazepam (Ativan), 0.5 MG PO Q6H PRN for Anxiety Allergies Coded Allergies: Morphine (Unverified Adverse Reaction, Unknown, NAUSEA AND CONFUSION, 10/28) Physical Exam Vital Signs Date Time Temp Pulse Resp B/P (MAP) Pulse Ox O2 Delivery O2 Flow Rate FiO2 12/05/17 17:50 87 18 171/93 96 Room Air 12/05/17 16:29 89 12/05/17 16:22 97 Room Air 12/05/17 16:22 97 Room Air 12/05/17 16:22 37.0 81 28 153/102 97 Room Air Physical Exam GENERAL: Patient is awake, alert, and in no acute distress. Patient is resting comfortably and showing no signs of anxiety EYES: The conjunctivae are clear. The pupils are round and reactive. EARS, NOSE, MOUTH AND THROAT: The nose is without any evidence of any deformity. Mucous membranes are moist tongue is midline NECK: The neck is nontender and supple. RESPIRATORY: Lung sounds diminished throughout with coarse rhonchi. CARDIOVASCULAR: Regular rate and rhythm noted there no murmurs rubs or gallops normal S1 normal S2 GASTROINTESTINAL: The abdomen is soft. Bowel sounds are present in all quadrants. Abdomen is nontender MUSCULOSKELETAL/EXTREMITIES: There is no evidence of gross deformity full range of motion is noted in the hips and shoulders SKIN: Pedal edema bilaterally. There is no obvious evidence of any rash. There are no petechiae, pallor or cyanosis noted. NEUROLOGIC: Patient is awake alert and oriented x3 Medical Decision & Procedures ER Provider Diagnostic Interpretation: Radiology results as stated below per my review and radiologist interpretation: CHEST ONE VIEW PORTABLE CLINICAL HISTORY: Sepsis dyspnea COMPARISON STUDY: 10/28/2017 FINDINGS: The bones soft tissues and hemidiaphragms are normal. The cardiomediastinal silhouette is normal. The lungs are clear. The pulmonary vasculature is normal. IMPRESSION: Negative chest. The above report was generated using voice recognition software. It may contain grammatical, syntax or spelling errors. Electronically signed by: Fede Hancock M.D. 12/05/2017 4:34 PM Dictated Date/Time: 12/05/2017 4:33 PM Laboratory Results 12/05/17 15:51 Red Blood Count 4.35, Mean Corpuscular Volume 94.5, Mean Corpuscular Hemoglobin 32.9, Mean Corpuscular Hemoglobin Concent 34.8, Mean Platelet Volume 10.1, Neutrophils (%) (Auto) 79.8, Lymphocytes (%) (Auto) 9.1, Monocytes (%) (Auto) 10.2, Eosinophils (%) (Auto) 0.1, Basophils (%) (Auto) 0.1, Neutrophils # (Auto ) 10.99, Lymphocytes # (Auto) 1.25, Monocytes # (Auto) 1.41, Eosinophils # (Auto ) 0.02, Basophils # (Auto) 0.02 12/05/17 15:51 Test 12/05/17 15:51 White Blood Count 13.78 K/uL (4.8-10.8) Red Blood Count 4.35 M/uL (4.7-6.1) Hemoglobin 14.3 g/dL (14.0-18.0) Hematocrit 41.1 % (42-52) Mean Corpuscular Volume 94.5 fL (80-100) Mean Corpuscular Hemoglobin 32.9 pg (25-34) Mean Corpuscular Hemoglobin Concent 34.8 g/dl (32-36) Platelet Count 186 K/uL (130-400) Mean Platelet Volume 10.1 fL (7.4-10.4) Neutrophils (%) (Auto) 79.8 % Lymphocytes (%) (Auto) 9.1 % Monocytes (%) (Auto) 10.2 % Eosinophils (%) (Auto) 0.1 % Basophils (%) (Auto) 0.1 % Neutrophils # (Auto) 10.99 K/uL (1.4-6.5) Lymphocytes # (Auto) 1.25 K/uL (1.2-3.4) Monocytes # (Auto) 1.41 K/uL (0.11-0.59) Eosinophils # (Auto) 0.02 K/uL (0-0.5) Basophils # (Auto) 0.02 K/uL (0-0.2) RDW Standard Deviation 46.9 fL (36.4-46.3) RDW Coefficient of Variation 13.7 % (11.5-14.5) Immature Granulocyte % (Auto) 0.7 % Immature Granulocyte # (Auto) 0.09 K/uL (0.00-0.02) Erythrocyte Sedimentation Rate 20 mm/hr (0-14) Anion Gap 5.0 mmol/L (3-11) Est Creatinine Clear Calc Drug Dose 40.2 ml/min Estimated GFR () 55.6 Estimated GFR (Non- 47.9 BUN/Creatinine Ratio 16.3 (10-20) Calcium Level 8.4 mg/dl (8.5-10.1) Magnesium Level 1.7 mg/dl (1.8-2.4) Total Bilirubin 0.9 mg/dl (0.2-1) Aspartate Amino Transf (AST/SGOT) 24 U/L (15-37) Alanine Aminotransferase (ALT/SGPT) 27 U/L (12-78) Alkaline Phosphatase 86 U/L (45-117) Total Creatine Kinase 73 U/L (39-308) Creatine Kinase MB 1.0 ng/ml (0.5-3.6) Creatine Kinase MB Ratio 1.4 (0-3.0) Troponin I < 0.015 ng/ml (0-0.045) C-Reactive Protein 0.64 mg/dl (0-0.29) Total Protein 7.3 gm/dl (6.4-8.2) Albumin 3.4 gm/dl (3.4-5.0) Globulin 3.9 gm/dl (2.5-4.0) Albumin/Globulin Ratio 0.9 (0.9-2) Chemistry Specimen Hemolysis Laboratory results per my review. Medications Administered Medications (Trade) Dose Ordered Sig/Federica Route Start Time Stop Time Status Last Admin Dose Admin Magnesium Oxide (Mag-Ox Tab) 400 mg ONE STAT PO 12/05/17 17:41 12/05/17 17:42 DC 12/05/17 17:49 400 MG ECG Per My Interpretation Indication: other (breathing problems) Rate (beats per minute): 77 Rhythm: sinus rhythm Findings: PVC (frequent PVC's), RBBB Change: no significant change (10/28/17) ED Course 1607: The patient was evaluated in room C7. A complete history and physical examination were performed. 173: Ordered Magnesium Sulfate 1gm IV. 1738: Upon reevaluation, the patient is resting comfortably. I discussed the results and treatment plan with him. He verbalized agreement of the treatment plan. The patient was discharged home. Medical Decision Prior records/ancillary studies reviewed. Triage Nursing notes reviewed. Additional history obtained from the family. The patient's history was concerning for respiratory difficulties. Differential diagnosis: Etiologies such as infections, reactive airway disease, pneumonia, pneumothorax , COPD, CHF, cardiac ischemia, pulmonary embolism, musculoskeletal, gastrointestinal, as well as others were entertained. The patient is a an 87-year-old male who presented to the emergency department with family members for an evaluation of cough. The patient has a history of pneumonia and thought he may have had pneumonia. He was started on Zithromax by his primary care physician and took the first dose this morning. The patient was not found to have signs of infiltrate on chest x-ray. He was not tachycardic or overly hypoxic. He has no chest discomfort. He has a history of CHF but at this time I feel his condition is most likely due to bronchitis given his elevated white blood cell count low-grade fever and cough. At this time I have encouraged him to continue all medications as prescribed including the Zithromax. He was encouraged to continue using Tylenol for fever and body aches and follow-up with his family doctor this week. He was started on a bronchodilator by myself. He was encouraged to continue using this as prescribed. He was also encouraged to return the emergency department immediately symptoms change worsen or the need arises. Medication Reconcilliation Current Medication List: was personally reviewed by me Blood Pressure Screening Patient's blood pressure: Elevated blood pressure Blood pressure disposition: Referred to PCP Impression Primary Impression: Bronchitis Additional Impression: Hypomagnesemia Scribe Attestation The scribe's documentation has been prepared under my direction and personally reviewed by me in its entirety. I confirm that the note above accurately reflects all work, treatment, procedures, and medical decision making performed by me. Departure Information Dispostion Home / Self-Care Prescriptions Albuterol Hfa (VENTOLIN HFA) 200 Puffs/[id number] Mcg Aers 2 PUFF INH Q4, #1 INHALER Prov: Mina Jackson, 12/05/17 Forms HOME CARE DOCUMENTATION FORM, IMPORTANT VISIT INFORMATION Additional Instructions Continue all medications as prescribed. Follow-up with your family doctor for reevaluation. Continue using Tylenol as directed for fever and body aches. Problem Qualifiers
[~2017-12-05 16:15] MED LIST changes: -ASPEC81 PO; +ASPI-320 PO
[2017-12-05 16:22] VITALS: TEMP 37; O2SAT 97; Ht 167.6 cm; Wt 90.0 kg
--- NOTE | 2017-12-05 16:35 | DIAGNOSTIC IMAGING REPORT ---
CHEST ONE VIEW PORTABLE CLINICAL HISTORY: Sepsis dyspnea COMPARISON STUDY: 10/28/2017 FINDINGS: The bones soft tissues and hemidiaphragms are normal. The cardiomediastinal silhouette is normal. The lungs are clear. The pulmonary vasculature is normal. IMPRESSION: Negative chest. The above report was generated using voice recognition software. It may contain grammatical, syntax or spelling errors. Electronically signed by: Fede Hancock M.D. 12/05/2017 4:34 PM Dictated Date/Time: 12/05/2017 4:33 PM
[2017-12-05 16:53] LABS: BASO % 0.1 %; BASO ABS # 0.02 K/uL (0-0.2); EOS % 0.1 %; EOS ABS # 0.02 K/uL (0-0.5); HEMATOCRIT 41.1 % (42-52); HEMOGLOBIN 14.3 g/dL (14.0-18.0); IG# 0.09 K/uL (0.00-0.02); LYMPH % 9.1 %; LYMPH ABS # 1.25 K/uL (1.2-3.4); MEAN CELL VOLUME 94.5 fL (80-100); MEAN CORPUSCULAR HEMOGLOBIN 32.9 pg (25-34); MEAN CORPUSCULAR HGB CONC 34.8 g/dl (32-36); MEAN PLATELET VOLUME 10.1 fL (7.4-10.4); MONO % 10.2 %; MONO ABS # 1.41 K/uL (0.11-0.59); NEUT % 79.8 %; NEUT ABS # 10.99 K/uL (1.4-6.5); PLATELET COUNT 186 K/uL (130-400); RED CELL DISTRIBUTION WIDTH CV 13.7 % (11.5-14.5); RED CELL DISTRIBUTION WIDTH SD 46.9 fL (36.4-46.3); WHITE BLOOD COUNT 13.78 K/uL (4.8-10.8)
[2017-12-05 17:30] LABS: ALBUMIN 3.4 gm/dl (3.4-5.0); ALKALINE PHOSPHATASE 86 U/L (45-117); ALT/SGPT 27 U/L (12-78); AST/SGOT 24 U/L (15-37); BLOOD UREA NITROGEN 21 mg/dl (7-18); CALCIUM 8.4 mg/dl (8.5-10.1); CARBON DIOXIDE 29 mmol/L (21-32); CREATININE 1.31 mg/dl (0.60-1.40); GLUCOSE 102 mg/dl (70-99); POTASSIUM 4.1 mmol/L (3.5-5.1); SODIUM 137 mmol/L (136-145); TOTAL PROTEIN 7.3 gm/dl (6.4-8.2)
[2017-12-05] MEDS ORDERED: MAGNESIUM SULFATE 1GM / D5W 1 GM BAG IV STA (17:32)
[2017-12-05] MEDS ORDERED: MAGNESIUM OXIDE 400 MG TAB PO STA (17:41)
[2017-12-05] MEDS ORDERED: VNTHFA/IN INH (17:46)
[2017-12-05] MEDS ORDERED: GLIP10TA3 PO (17:56)
[2017-12-05] MEDS ORDERED: DIPH-416 PO (17:56)
[2017-12-05] MEDS ORDERED: METF500T5 PO (17:56)
[2017-12-05] MEDS ORDERED: VITACAP37 PO (17:56)
[2017-12-05] MEDS ORDERED: NTRGSL/4 UT (17:56)
[2017-12-05] MEDS ORDERED: ALBUTEROL HFA 8 GM INHALER INH ONE (18:30)
[2017-12-05 18:35] VITALS: BP 171/93; PULSE 87; O2SAT 96
== END 2017-12-05 18:36 | disposition home or self-care (01) ==
LOC: EDBD 16:15 → C.EDC 16:16
DX: J40 Bronchitis, not specified as acute or chronic (principal); E83.42 Hypomagnesemia; E11.9 Type 2 diabetes mellitus without complications; I11.0 Hypertensive heart disease with heart failure; K21.9 Gastro-esophageal reflux disease without esophagitis; F41.9 Anxiety disorder, unspecified; I50.32 Chronic diastolic (congestive) heart failure; Z79.82 Long term (current) use of aspirin; Z79.899 Other long term (current) drug therapy; Z79.84 Long term (current) use of oral hypoglycemic drugs; Z88.6 Allergy status to analgesic agent; Z87.01 Personal history of pneumonia (recurrent); Z82.49 Family history of ischemic heart disease and other diseases of the circulatory system